=== PATIENT | male | born 1945 | race Caucasian/White ===

== ENCOUNTER 2019-11-06 23:35 | Inpatient (IN) ==
[2019-11-06] MEDS ORDERED: Isovue-370 500 ML BOTTLE IVP ONE (23:53)
[2019-11-07 00:12] LABS: Bilirubin,Urine Negative (Negative); Blood,Urine Negative (Negative); Clarity,Urine Clear (Clear); Color,Urine Colorless (Yellow); Glucose,Urine (UA) Normal (Normal); Ketones,Urine Negative (Negative); Leukocyte Esterase,Urine Negative (Negative); Nitrite,Urine Negative (Negative); Protein,Urine Negative (Neg-Trace); Specific Gravity,Urine 1.008 (1.010-1.025); Urobilinogen,Urine Normal (Normal)
[2019-11-07 00:19] LABS: Prothrombin Time 22.4 Seconds (9.4-12.1)
[2019-11-07 00:21] LABS: Activated Partial Thrombo Time 37.2 Seconds (26.0-36.0)
[2019-11-07 00:33] LABS: Basophils # 0.1 K/mcL (0.0-0.2); Basophils % 0.8 %; Eosinophils # 0.5 K/mcL (0.0-0.6); Eosinophils % 7.9 %; Hematocrit 38.3 % (37.5-50.1); Hemoglobin 12.9 g/dL (12.9-16.9); Immature Granulocytes % 0.2 % (0-4); Lymphocytes # 1.1 K/mcL (0.6-4.6); Lymphocytes % 16.6 %; Mean Corpuscular HGB Conc 33.7 g/dL (31.6-35.5); Mean Corpuscular Hemoglobin 31.5 pg (28.0-33.3); Mean Corpuscular Volume 93.6 fL (83.0-100.0); Mean Platelet Volume 11.3 fL (9.4-12.4); Monocytes # 0.8 K/mcL (0.0-1.3); Monocytes % 11.9 %; Platelet Count 221 K/mcL (140-400); Red Blood Count 4.09 M/mcL (4.19-5.50); Red Cell Distribution Width 13.1 % (11.5-14.5); Segmented Neutrophils % 62.6 %; White Blood Count 6.3 K/mcL (4.3-11.1)
[2019-11-07] MEDS ORDERED: Morphine Sulfate 2 MG/ML SYRINGE IVP ONE ×2 (00:46→06:25)
[2019-11-07 00:48] LABS: Alanine Aminotransferase 15 Units/L (7-52); Albumin 4.1 g/dL (3.5-5.7); Albumin/Globulin Ratio 1.2 (1.1-2.2); Alkaline Phosphatase 112 Units/L (34-104); Aspartate Amino Transferase 23 Units/L (13-39); BUN/Creatinine Ratio 16 (6-26); Bilirubin,Direct 0.2 mg/dL (0.0-0.2); Bilirubin,Indirect 0.5 mg/dL (0.0-1.0); Bilirubin,Total 0.7 mg/dL (0.3-1.0); Blood Urea Nitrogen 22 mg/dL (8-23); Calcium 9.9 mg/dL (8.6-10.3); Carbon Dioxide 27 mEq/L (23-29); Chloride 100 mEq/L (98-107); Globulin 3.5 g/dL (2.4-3.5); Glucose 172 mg/dL (70-105); Lipase 7 Units/L (11-82); Osmolality,Calculated 293 (280-300); Potassium 4.3 mEq/L (3.5-5.1); Sodium 138 mEq/L (136-145); Total Protein 7.6 g/dL (6.4-8.9); Troponin I 0.03 ng/mL (< 0.04); eGFR For African Americans > 60 (> 60); eGFR For Non-African Americans 52 (> 60)
[2019-11-07] MEDS ORDERED: Aspirin 81 MG TAB.CHEW PO ONE (01:10)
[2019-11-07 06:16] LABS: Hematocrit 38.6 % (37.5-50.1); Mean Corpuscular HGB Conc 33.7 g/dL (31.6-35.5); Mean Corpuscular Hemoglobin 31.3 pg (28.0-33.3); Mean Platelet Volume 10.7 fL (9.4-12.4); Platelet Count 211 K/mcL (140-400); Red Blood Count 4.15 M/mcL (4.19-5.50); Red Cell Distribution Width 13.1 % (11.5-14.5); White Blood Count 6.4 K/mcL (4.3-11.1)
[2019-11-07 06:22] LABS: Prothrombin Time 22.8 Seconds (9.4-12.1)
[2019-11-07] MEDS ORDERED: Naloxone 0.4 MG/ML INJ IVP PRN (06:26)
[2019-11-07] MEDS ORDERED: Ondansetron ODT 4 MG TAB.RAPDIS SL PRN (06:29)
[2019-11-07 06:40] LABS: Troponin I 0.04 ng/mL (< 0.04)
[2019-11-07 06:54] LABS: BUN/Creatinine Ratio 19 (6-26); Blood Urea Nitrogen 26 mg/dL (8-23); Carbon Dioxide 29 mEq/L (23-29); Chloride 101 mEq/L (98-107); Glucose 124 mg/dL (70-105); Osmolality,Calculated 294 (280-300); Potassium 4.1 mEq/L (3.5-5.1); Sodium 139 mEq/L (136-145); eGFR For African Americans > 60 (> 60); eGFR For Non-African Americans 52 (> 60)
[2019-11-07] MEDS: Aspirin Enteric Coated 325 MG Tablet PO SCH (07:52)
[2019-11-07] MEDS: Ascorbic Acid 500 MG TABLET PO SCH (07:52)
[2019-11-07] MEDS: Folic Acid 1 MG TABLET PO SCH (07:52)
[2019-11-07] MEDS: Morphine Sulfate ER (12 HR) 30 MG TABLET.ER PO SCH ×2 (07:52→16:34)
[2019-11-07] MEDS: Furosemide 40 MG TABLET PO SCH (07:52)
[2019-11-07] MEDS: Multivit/Ca/Min/Fe/FA 1 TAB TABLET PO SCH (07:52)
[2019-11-07] MEDS: carvediloL 6.25 MG TABLET PO SCH ×2 (07:53→16:34)
[2019-11-07] MEDS: Gabapentin 300 MG CAPSULE PO SCH ×3 (07:53→20:16)
[2019-11-07] MEDS: Cyanocobalamin (B-12) 1,000 MCG TABLET PO SCH (07:53)
[2019-11-07] MEDS: Cholecalciferol (D-3) 1,000 UNIT (25MCG) TABLET PO SCH (07:54)
[2019-11-07] MEDS ORDERED: Dextrose Gel 15 GM/37.5 ML TUBE PO PRN ×2 (08:21)
[2019-11-07] MEDS ORDERED: *HR* Dextrose 50 % in Water (Vial) 50 ML VIAL IVP PRN (08:21)
[2019-11-07] MEDS ORDERED: D5% in Water 1,000 ML IVC PRN (08:21)
[2019-11-07] MEDS ORDERED: Regadenoson 0.4 MG/5 ML SYRINGE IVP ONE (09:53)
[2019-11-07] MEDS: *HR* OxyCODONE Immed Rel 5 MG TABLET PO PRN ×2 (11:28→21:35)
[2019-11-07] MEDS: Insulin LISPRO 300 UNITS/3 ML VIAL SQ SCH ×3 (11:29→21:32)
[2019-11-07] MEDS ORDERED: *HR* Warfarin 3 MG TABLET PO ONE (18:00)
[2019-11-07] MEDS ORDERED: Warfarin perPT PO PRN (18:00)
[2019-11-08 01:28] LABS: INR 1.8; Prothrombin Time 20.6 Seconds (9.4-12.1)
[2019-11-08 01:43] LABS: Chol/HDL Ratio 3.2 (0-4.9)
[2019-11-08] MEDS: Morphine Sulfate ER (12 HR) 30 MG TABLET.ER PO SCH ×2 (05:47→18:15)
[2019-11-08 08:05] LABS: Estimated Average Glucose 232 mg/dl
[2019-11-08] MEDS: Cyanocobalamin (B-12) 1,000 MCG TABLET PO SCH (09:20)
[2019-11-08] MEDS: Aspirin Enteric Coated 325 MG Tablet PO SCH (09:20)
[2019-11-08] MEDS: Ascorbic Acid 500 MG TABLET PO SCH (09:20)
[2019-11-08] MEDS: carvediloL 6.25 MG TABLET PO SCH ×2 (09:20→16:52)
[2019-11-08] MEDS: Folic Acid 1 MG TABLET PO SCH (09:22)
[2019-11-08] MEDS: Insulin LISPRO 300 UNITS/3 ML VIAL SQ SCH ×4 (09:22→22:39)
[2019-11-08] MEDS: Gabapentin 300 MG CAPSULE PO SCH ×3 (09:22→22:39)
[2019-11-08] MEDS: Multivit/Ca/Min/Fe/FA 1 TAB TABLET PO SCH (09:22)
[2019-11-08] MEDS: Furosemide 40 MG TABLET PO SCH (09:22)
[2019-11-08] MEDS: Cholecalciferol (D-3) 1,000 UNIT (25MCG) TABLET PO SCH (09:22)
[2019-11-08] MEDS: *HR* OxyCODONE Immed Rel 5 MG TABLET PO PRN ×2 (13:25→22:50)
[2019-11-08] MEDS: polyethylene glycoL 3350 17 GM POWD.PACK PO SCH ×2 (15:20→22:39)
[2019-11-08] MEDS ORDERED: *HR* Warfarin 4 MG TABLET PO ONE (18:00)
[2019-11-09 03:39] LABS: INR 1.8; Prothrombin Time 20.4 Seconds (9.4-12.1)
[2019-11-09] MEDS ORDERED: Regadenoson 0.4 MG/5 ML SYRINGE IVP ONE (06:26)
[2019-11-09] MEDS: Morphine Sulfate ER (12 HR) 30 MG TABLET.ER PO SCH ×2 (06:27→18:04)
[2019-11-09] MEDS: *HR* OxyCODONE Immed Rel 5 MG TABLET PO PRN (06:28)
[2019-11-09] MEDS: Insulin LISPRO 300 UNITS/3 ML VIAL SQ SCH ×4 (09:25→21:00)
[2019-11-09] MEDS: Cholecalciferol (D-3) 1,000 UNIT (25MCG) TABLET PO SCH (10:27)
[2019-11-09] MEDS: Ascorbic Acid 500 MG TABLET PO SCH (10:27)
[2019-11-09] MEDS: Aspirin Enteric Coated 325 MG Tablet PO SCH (10:27)
[2019-11-09] MEDS: Folic Acid 1 MG TABLET PO SCH (10:28)
[2019-11-09] MEDS: Gabapentin 300 MG CAPSULE PO SCH ×3 (10:28→21:01)
[2019-11-09] MEDS: Furosemide 40 MG TABLET PO SCH (10:28)
[2019-11-09] MEDS: Cyanocobalamin (B-12) 1,000 MCG TABLET PO SCH (10:28)
[2019-11-09] MEDS: Multivit/Ca/Min/Fe/FA 1 TAB TABLET PO SCH (10:29)
[2019-11-09] MEDS: carvediloL 6.25 MG TABLET PO SCH ×2 (10:29→16:36)
[2019-11-09] MEDS: polyethylene glycoL 3350 17 GM POWD.PACK PO SCH ×2 (10:34→21:01)
[2019-11-09 12:16] LABS: Calcium 9.5 mg/dL (8.6-10.3); Potassium 4.1 mEq/L (3.5-5.1)
[2019-11-09 14:47] LABS: INR 1.9; Prothrombin Time 21.1 Seconds (9.4-12.1)
[2019-11-10 04:44] LABS: Prothrombin Time 22.5 Seconds (9.4-12.1)
[2019-11-10 04:45] LABS: Hemoglobin 12.5 g/dL (12.9-16.9); Red Blood Count 3.93 M/mcL (4.19-5.50); White Blood Count 5.4 K/mcL (4.3-11.1)
[2019-11-10 04:46] LABS: Basophils % 0.7 %; Eosinophils # 0.5 K/mcL (0.0-0.6); Eosinophils % 8.3 %; Hematocrit 37.8 % (37.5-50.1); Immature Granulocytes % 0.2 % (0-4); Lymphocytes # 1.1 K/mcL (0.6-4.6); Lymphocytes % 20.9 %; Mean Corpuscular HGB Conc 33.1 g/dL (31.6-35.5); Mean Corpuscular Hemoglobin 31.8 pg (28.0-33.3); Mean Corpuscular Volume 96.2 fL (83.0-100.0); Mean Platelet Volume 11.2 fL (9.4-12.4); Monocytes # 0.8 K/mcL (0.0-1.3); Monocytes % 14.6 %; Platelet Count 210 K/mcL (140-400); Red Cell Distribution Width 12.6 % (11.5-14.5); Segmented Neutrophils % 55.3 %
[2019-11-10 04:57] LABS: Calcium 9.5 mg/dL (8.6-10.3); Magnesium 2.1 mg/dL (1.6-2.6); Phosphorous 3.3 mg/dL (2.7-4.5); Potassium 4.4 mEq/L (3.5-5.1)
[2019-11-10] MEDS: Morphine Sulfate ER (12 HR) 30 MG TABLET.ER PO SCH ×2 (06:54→18:06)
[2019-11-10] MEDS: Cyanocobalamin (B-12) 1,000 MCG TABLET PO SCH (07:48)
[2019-11-10] MEDS: Ascorbic Acid 500 MG TABLET PO SCH (07:48)
[2019-11-10] MEDS: Multivit/Ca/Min/Fe/FA 1 TAB TABLET PO SCH (07:48)
[2019-11-10] MEDS: Cholecalciferol (D-3) 1,000 UNIT (25MCG) TABLET PO SCH (07:48)
[2019-11-10] MEDS: Aspirin Enteric Coated 325 MG Tablet PO SCH (07:48)
[2019-11-10] MEDS: carvediloL 6.25 MG TABLET PO SCH ×2 (07:48→16:25)
[2019-11-10] MEDS: Gabapentin 300 MG CAPSULE PO SCH ×3 (07:49→20:01)
[2019-11-10] MEDS: Folic Acid 1 MG TABLET PO SCH (07:49)
[2019-11-10] MEDS: Furosemide 40 MG TABLET PO SCH (07:49)
[2019-11-10] MEDS: polyethylene glycoL 3350 17 GM POWD.PACK PO SCH ×2 (07:51→20:01)
[2019-11-10] MEDS: Insulin LISPRO 300 UNITS/3 ML VIAL SQ SCH ×4 (07:51→19:25)
[2019-11-10] MEDS: Nitroglycerin 0.4 MG TAB.SUBL SL PRN ×2 (11:12→11:18)
[2019-11-11 02:12] LABS: Basophils % 0.7 %; Eosinophils # 0.4 K/mcL (0.0-0.6); Eosinophils % 7.4 %; Hematocrit 37.2 % (37.5-50.1); Hemoglobin 12.2 g/dL (12.9-16.9); Immature Granulocytes % 0.2 % (0-4); Lymphocytes # 1.1 K/mcL (0.6-4.6); Lymphocytes % 18.8 %; Mean Corpuscular HGB Conc 32.8 g/dL (31.6-35.5); Mean Corpuscular Hemoglobin 31.1 pg (28.0-33.3); Mean Corpuscular Volume 94.9 fL (83.0-100.0); Mean Platelet Volume 11.3 fL (9.4-12.4); Monocytes # 0.8 K/mcL (0.0-1.3); Monocytes % 12.8 %; Neutrophils # 3.5 K/mcL (1.6-8.9); Platelet Count 207 K/mcL (140-400); Red Blood Count 3.92 M/mcL (4.19-5.50); Red Cell Distribution Width 12.9 % (11.5-14.5); Segmented Neutrophils % 60.1 %; White Blood Count 5.9 K/mcL (4.3-11.1)
[2019-11-11 02:16] LABS: INR 1.7; Prothrombin Time 19.6 Seconds (9.4-12.1)
[2019-11-11 02:24] LABS: Calcium 8.9 mg/dL (8.6-10.3); Magnesium 1.9 mg/dL (1.6-2.6); Potassium 4.5 mEq/L (3.5-5.1)
[2019-11-11] MEDS ORDERED: *HR* Heparin 5,000 UNIT/ML VIAL IVP PRN ×2 (02:48)
[2019-11-11] MEDS ORDERED: *HR* Heparin 5,000 UNIT/ML VIAL IVP ONE (02:48)
[2019-11-11] MEDS: Heparin 25,000 UNIT/250 ML D5W 25,000 UNIT/250 ML IV.SOLN IVC SCH (03:40)
[2019-11-11] MEDS: *HR* OxyCODONE Immed Rel 5 MG TABLET PO PRN (03:56)
[2019-11-11] MEDS: Morphine Sulfate ER (12 HR) 30 MG TABLET.ER PO SCH ×2 (05:55→18:40)
[2019-11-11 07:16] LABS: Hemoglobin 12.2 g/dL (12.9-16.9); Mean Corpuscular HGB Conc 34.9 g/dL (31.6-35.5); Mean Corpuscular Hemoglobin 32.6 pg (28.0-33.3); Mean Corpuscular Volume 93.6 fL (83.0-100.0); Mean Platelet Volume 10.6 fL (9.4-12.4); Platelet Count 183 K/mcL (140-400); Red Blood Count 3.74 M/mcL (4.19-5.50); Red Cell Distribution Width 12.7 % (11.5-14.5); White Blood Count 7.3 K/mcL (4.3-11.1)
[2019-11-11 07:21] LABS: Activated Partial Thrombo Time 108.3 Seconds (26.0-36.0)
[2019-11-11 07:22] LABS: INR 1.7
[2019-11-11 07:37] LABS: Heparin anti-factor XA UFH 0.57 IU/mL (0.30-0.70)
[2019-11-11] MEDS: Cholecalciferol (D-3) 1,000 UNIT (25MCG) TABLET PO SCH (08:06)
[2019-11-11] MEDS: Gabapentin 300 MG CAPSULE PO SCH ×3 (08:07→20:29)
[2019-11-11] MEDS: Aspirin Enteric Coated 325 MG Tablet PO SCH (08:07)
[2019-11-11] MEDS: Multivit/Ca/Min/Fe/FA 1 TAB TABLET PO SCH (08:08)
[2019-11-11] MEDS: Cyanocobalamin (B-12) 1,000 MCG TABLET PO SCH (08:08)
[2019-11-11] MEDS: Furosemide 40 MG TABLET PO SCH (08:08)
[2019-11-11] MEDS: Ascorbic Acid 500 MG TABLET PO SCH (08:08)
[2019-11-11] MEDS: Insulin LISPRO 300 UNITS/3 ML VIAL SQ SCH ×4 (08:09→20:35)
[2019-11-11] MEDS: polyethylene glycoL 3350 17 GM POWD.PACK PO SCH ×2 (08:27→20:30)
[2019-11-11] MEDS: Folic Acid 1 MG TABLET PO SCH (08:28)
[2019-11-11] MEDS: carvediloL 6.25 MG TABLET PO SCH ×2 (08:30→16:59)
[2019-11-12] MEDS: Heparin 25,000 UNIT/250 ML D5W 25,000 UNIT/250 ML IV.SOLN IVC SCH (03:52)
[2019-11-12 04:10] LABS: Basophils % 0.6 %; Eosinophils # 0.5 K/mcL (0.0-0.6); Eosinophils % 9.1 %; Hematocrit 35.8 % (37.5-50.1); Hemoglobin 12.3 g/dL (12.9-16.9); INR 1.4; Immature Granulocytes % 0.2 % (0-4); Lymphocytes # 1.1 K/mcL (0.6-4.6); Lymphocytes % 20.6 %; Mean Corpuscular HGB Conc 34.4 g/dL (31.6-35.5); Mean Corpuscular Hemoglobin 32.5 pg (28.0-33.3); Mean Corpuscular Volume 94.5 fL (83.0-100.0); Mean Platelet Volume 11.1 fL (9.4-12.4); Monocytes # 0.7 K/mcL (0.0-1.3); Monocytes % 12.1 %; Neutrophils # 3.1 K/mcL (1.6-8.9); Platelet Count 197 K/mcL (140-400); Prothrombin Time 16.1 Seconds (9.4-12.1); Red Blood Count 3.79 M/mcL (4.19-5.50); Segmented Neutrophils % 57.4 %; White Blood Count 5.4 K/mcL (4.3-11.1)
[2019-11-12 04:29] LABS: Calcium 8.7 mg/dL (8.6-10.3); Magnesium 1.9 mg/dL (1.6-2.6); Phosphorous 3.8 mg/dL (2.7-4.5); Potassium 4.1 mEq/L (3.5-5.1)
[2019-11-12] MEDS: Morphine Sulfate ER (12 HR) 30 MG TABLET.ER PO SCH ×2 (05:46→17:41)
[2019-11-12] MEDS: Folic Acid 1 MG TABLET PO SCH (07:54)
[2019-11-12] MEDS: Cyanocobalamin (B-12) 1,000 MCG TABLET PO SCH (07:54)
[2019-11-12] MEDS: Multivit/Ca/Min/Fe/FA 1 TAB TABLET PO SCH (07:54)
[2019-11-12] MEDS: Furosemide 40 MG TABLET PO SCH (07:54)
[2019-11-12] MEDS: Aspirin Enteric Coated 325 MG Tablet PO SCH (07:54)
[2019-11-12] MEDS: Ascorbic Acid 500 MG TABLET PO SCH (07:54)
[2019-11-12] MEDS: Gabapentin 300 MG CAPSULE PO SCH ×3 (07:54→20:54)
[2019-11-12] MEDS: polyethylene glycoL 3350 17 GM POWD.PACK PO SCH ×2 (07:55→20:57)
[2019-11-12] MEDS: Cholecalciferol (D-3) 1,000 UNIT (25MCG) TABLET PO SCH (07:55)
[2019-11-12] MEDS: Insulin LISPRO 300 UNITS/3 ML VIAL SQ SCH ×4 (08:00→20:57)
[2019-11-12] MEDS: carvediloL 6.25 MG TABLET PO SCH ×2 (08:06→16:35)
[2019-11-12] MEDS: predniSONE 20 MG TABLET PO SCH (20:53)
[2019-11-13 01:07] LABS: Basophils % 0.4 %; Eosinophils # 0.2 K/mcL (0.0-0.6); Eosinophils % 3.1 %; Hematocrit 38.5 % (37.5-50.1); Hemoglobin 12.7 g/dL (12.9-16.9); Immature Granulocytes % 0.4 % (0-4); Lymphocytes # 0.6 K/mcL (0.6-4.6); Lymphocytes % 10.7 %; Mean Corpuscular Hemoglobin 31.3 pg (28.0-33.3); Mean Corpuscular Volume 94.8 fL (83.0-100.0); Mean Platelet Volume 11.2 fL (9.4-12.4); Monocytes # 0.2 K/mcL (0.0-1.3); Monocytes % 3.3 %; Neutrophils # 4.2 K/mcL (1.6-8.9); Platelet Count 213 K/mcL (140-400); Red Blood Count 4.06 M/mcL (4.19-5.50); Red Cell Distribution Width 12.8 % (11.5-14.5); Segmented Neutrophils % 82.1 %; White Blood Count 5.2 K/mcL (4.3-11.1)
[2019-11-13 01:11] LABS: Magnesium 1.9 mg/dL (1.6-2.6); Phosphorous 2.7 mg/dL (2.7-4.5); Potassium 4.4 mEq/L (3.5-5.1)
[2019-11-13] MEDS: predniSONE 20 MG TABLET PO SCH ×2 (02:25→20:28)
[2019-11-13] MEDS: Heparin 25,000 UNIT/250 ML D5W 25,000 UNIT/250 ML IV.SOLN IVC SCH (04:11)
[2019-11-13] MEDS: Morphine Sulfate ER (12 HR) 30 MG TABLET.ER PO SCH ×2 (05:45→17:55)
[2019-11-13] MEDS ORDERED: 0.9 % Sodium Chloride 1,000 ML IVC SCH ×2 (06:00→23:00)
[2019-11-13] MEDS: polyethylene glycoL 3350 17 GM POWD.PACK PO SCH ×2 (07:36→20:28)
[2019-11-13] MEDS: Gabapentin 300 MG CAPSULE PO SCH ×3 (07:58→20:29)
[2019-11-13] MEDS: Folic Acid 1 MG TABLET PO SCH (07:59)
[2019-11-13] MEDS: carvediloL 6.25 MG TABLET PO SCH ×2 (07:59→17:54)
[2019-11-13] MEDS: Multivit/Ca/Min/Fe/FA 1 TAB TABLET PO SCH (07:59)
[2019-11-13] MEDS: Cholecalciferol (D-3) 1,000 UNIT (25MCG) TABLET PO SCH (07:59)
[2019-11-13] MEDS: Cyanocobalamin (B-12) 1,000 MCG TABLET PO SCH (08:00)
[2019-11-13] MEDS: Aspirin Enteric Coated 325 MG Tablet PO SCH (08:00)
[2019-11-13] MEDS: Ascorbic Acid 500 MG TABLET PO SCH (08:00)
[2019-11-13] MEDS: Insulin LISPRO 300 UNITS/3 ML VIAL SQ SCH ×4 (08:00→20:33)
[2019-11-14] MEDS: predniSONE 20 MG TABLET PO SCH (02:39)
[2019-11-14] MEDS: Heparin 25,000 UNIT/250 ML D5W 25,000 UNIT/250 ML IV.SOLN IVC SCH (02:40)
[2019-11-14] MEDS: Morphine Sulfate ER (12 HR) 30 MG TABLET.ER PO SCH ×2 (05:51→20:04)
[2019-11-14] MEDS: Insulin LISPRO 300 UNITS/3 ML VIAL SQ SCH ×3 (06:52→18:00)
[2019-11-14 08:25] LABS: Basophils % 0.1 %; Hematocrit 36.3 % (37.5-50.1); Hemoglobin 12.5 g/dL (12.9-16.9); Immature Granulocytes % 0.4 % (0-4); Lymphocytes # 0.6 K/mcL (0.6-4.6); Lymphocytes % 5.2 %; Mean Corpuscular HGB Conc 34.4 g/dL (31.6-35.5); Mean Corpuscular Hemoglobin 32.9 pg (28.0-33.3); Mean Corpuscular Volume 95.5 fL (83.0-100.0); Mean Platelet Volume 10.8 fL (9.4-12.4); Monocytes # 0.2 K/mcL (0.0-1.3); Monocytes % 1.6 %; Platelet Count 204 K/mcL (140-400); Red Cell Distribution Width 12.9 % (11.5-14.5); Segmented Neutrophils % 92.7 %; White Blood Count 10.6 K/mcL (4.3-11.1)
[2019-11-14 08:26] LABS: Neutrophils # 9.8 K/mcL (1.6-8.9)
[2019-11-14 08:43] LABS: Calcium 9.8 mg/dL (8.6-10.3); Magnesium 1.9 mg/dL (1.6-2.6); Phosphorous 3.1 mg/dL (2.7-4.5); Potassium 4.4 mEq/L (3.5-5.1)
[2019-11-14] MEDS: carvediloL 6.25 MG TABLET PO SCH ×2 (08:48→17:30)
[2019-11-14] MEDS: Aspirin Enteric Coated 325 MG Tablet PO SCH (08:58)
[2019-11-14] MEDS: polyethylene glycoL 3350 17 GM POWD.PACK PO SCH ×2 (08:58→19:55)
[2019-11-14] MEDS: Gabapentin 300 MG CAPSULE PO SCH (08:59)
[2019-11-14] MEDS: Multivit/Ca/Min/Fe/FA 1 TAB TABLET PO SCH (08:59)
[2019-11-14] MEDS: Ascorbic Acid 500 MG TABLET PO SCH (08:59)
[2019-11-14] MEDS: Cyanocobalamin (B-12) 1,000 MCG TABLET PO SCH (08:59)
[2019-11-14] MEDS: Folic Acid 1 MG TABLET PO SCH (09:00)
[2019-11-14] MEDS: Cholecalciferol (D-3) 1,000 UNIT (25MCG) TABLET PO SCH (09:01)
[2019-11-14] MEDS: Insulin DETEMIR 100 UNIT/ML X5UNITS SQ SCH ×2 (09:46→19:54)
[2019-11-14] MEDS ORDERED: 0.9 % Sodium Chloride 2,000 ML ONE (13:00)
[2019-11-14] MEDS ORDERED: Nitroglycerin 1,000 MCG/10 ML VIAL IV ONE (13:01)
[2019-11-14] MEDS ORDERED: ISOVUE-370 200 ML INFUS..BTL ONE (13:01)
[2019-11-14] MEDS ORDERED: *HR* Heparin 10,000 UNIT/10 ML VIAL ONE (13:01)
[2019-11-14] MEDS ORDERED: Heparin 1,000 UNITS/500 mL 500 ML ONE (13:01)
[2019-11-14] MEDS ORDERED: *HR* Midazolam HCl 2 MG/2 ML VIAL ONE ×2 (13:34→15:15)
[2019-11-14] MEDS ORDERED: *HR* FentaNYL (PF) 100 MCG/2 ML VIAL ONE ×2 (13:35→15:43)
[2019-11-14] MEDS ORDERED: methylPREDNISolone 125 MG/2 ML VIAL ONE (13:46)
[2019-11-14] MEDS ORDERED: *HR* Propofol 200 MG/20 ML VIAL IVP ONE (15:16)
[2019-11-14] MEDS ORDERED: Lidocaine -MPF 2% 2 ML VIAL ONE (15:17)
[2019-11-14] MEDS ORDERED: Lidocaine/EPI 1:100k 1% 20 ML VIAL ONE (16:30)
[2019-11-14] MEDS ORDERED: *HR* HYDROmorphone PF 0.5 MG/0.5 ML SYRINGE IVP PRN (17:17)
[2019-11-14] MEDS ORDERED: *HR* Promethazine 25 MG/ML VIAL IVP PRN (17:17)
[2019-11-14] MEDS ORDERED: *HR* OxyCODONE Immed Rel 5 MG TABLET PO PRN (17:17)
[2019-11-14] MEDS ORDERED: Ondansetron 4 MG/2 ML VIAL IVP ONE (17:17)
[2019-11-14] MEDS ORDERED: EPHEDrine 50 MG/ML VIAL ONE (17:23)
[2019-11-14] MEDS: ceFAZolin 2,000 MG in 0.9 % Sodium Chloride 100 ML IVPB SCH (23:00)
[2019-11-15] MEDS: Insulin LISPRO 300 UNITS/3 ML VIAL SQ SCH ×4 (00:53→16:53)
[2019-11-15 03:22] LABS: Basophils % 0.1 %; Hematocrit 34.4 % (37.5-50.1); Hemoglobin 11.8 g/dL (12.9-16.9); Immature Granulocytes % 0.7 % (0-4); Lymphocytes # 0.4 K/mcL (0.6-4.6); Lymphocytes % 2.8 %; Mean Corpuscular HGB Conc 34.3 g/dL (31.6-35.5); Mean Corpuscular Hemoglobin 32.6 pg (28.0-33.3); Mean Platelet Volume 10.7 fL (9.4-12.4); Monocytes # 0.6 K/mcL (0.0-1.3); Monocytes % 4.2 %; Neutrophils # 13.7 K/mcL (1.6-8.9); Platelet Count 220 K/mcL (140-400); Red Blood Count 3.62 M/mcL (4.19-5.50); Red Cell Distribution Width 13.1 % (11.5-14.5); Segmented Neutrophils % 92.2 %; White Blood Count 14.9 K/mcL (4.3-11.1)
[2019-11-15 03:48] LABS: Calcium 9.4 mg/dL (8.6-10.3); Magnesium 1.8 mg/dL (1.6-2.6); Phosphorous 3.4 mg/dL (2.7-4.5); Potassium 4.3 mEq/L (3.5-5.1)
[2019-11-15] MEDS: Morphine Sulfate ER (12 HR) 30 MG TABLET.ER PO SCH ×2 (05:34→18:43)
[2019-11-15] MEDS: polyethylene glycoL 3350 17 GM POWD.PACK PO SCH ×2 (07:30→20:47)
[2019-11-15] MEDS: Multivit/Ca/Min/Fe/FA 1 TAB TABLET PO SCH (08:32)
[2019-11-15] MEDS: Folic Acid 1 MG TABLET PO SCH (08:32)
[2019-11-15] MEDS: Ascorbic Acid 500 MG TABLET PO SCH (08:35)
[2019-11-15] MEDS: *HR* OxyCODONE Immed Rel 5 MG TABLET PO PRN ×4 (08:35→23:36)
[2019-11-15] MEDS: Cyanocobalamin (B-12) 1,000 MCG TABLET PO SCH (08:35)
[2019-11-15] MEDS: ceFAZolin 2,000 MG in 0.9 % Sodium Chloride 100 ML IVPB SCH (08:35)
[2019-11-15] MEDS: carvediloL 6.25 MG TABLET PO SCH ×2 (08:35→16:27)
[2019-11-15] MEDS: Aspirin Enteric Coated 325 MG Tablet PO SCH (08:35)
[2019-11-15] MEDS: Cholecalciferol (D-3) 1,000 UNIT (25MCG) TABLET PO SCH (08:36)
[2019-11-15 09:44] LABS: INR 1.1; Prothrombin Time 12.8 Seconds (9.4-12.1)
[2019-11-15] MEDS ORDERED: *HR* Heparin 5,000 UNIT/ML VIAL IVP PRN ×4 (10:53→12:21)
[2019-11-15] MEDS ORDERED: Heparin 25,000 UNIT/250 ML D5W 25,000 UNIT/250 ML IV.SOLN IVC SCH (11:00)
[2019-11-15] MEDS: Magnesium Oxide 400 MG TABLET PO SCH (12:01)
[2019-11-15 13:03] LABS: Hematocrit 36.2 % (37.5-50.1); Hemoglobin 12.4 g/dL (12.9-16.9); Mean Corpuscular HGB Conc 34.3 g/dL (31.6-35.5); Mean Corpuscular Hemoglobin 32.6 pg (28.0-33.3); Mean Corpuscular Volume 95.3 fL (83.0-100.0); Mean Platelet Volume 10.6 fL (9.4-12.4); Platelet Count 220 K/mcL (140-400); Red Cell Distribution Width 13.3 % (11.5-14.5); White Blood Count 12.8 K/mcL (4.3-11.1)
[2019-11-15] MEDS: Heparin 25,000 UNIT/250 ML D5W 25,000 UNIT/250 ML IV.SOLN IVC SCH (13:16)
[2019-11-15 16:28] LABS: Bilirubin,Urine Negative (Negative); Blood,Urine Negative (Negative); Clarity,Urine Clear (Clear); Color,Urine Light-Yellow (Yellow); Glucose,Urine (UA) 100 mg/dL (Normal); Ketones,Urine Negative (Negative); Leukocyte Esterase,Urine Negative (Negative); Nitrite,Urine Negative (Negative); Protein,Urine Negative (Neg-Trace); Specific Gravity,Urine 1.029 (1.010-1.025); Urobilinogen,Urine Normal (Normal)
[2019-11-15 17:22] LABS: Protein/Creatinine Ratio,Urine 0.16 mg/mg (0.00-0.20)
[2019-11-15] MEDS ORDERED: Warfarin perPT PO PRN (18:00)
[2019-11-15] MEDS ORDERED: *HR* Warfarin 3 MG TABLET PO ONE (18:00)
[2019-11-15] MEDS: Insulin DETEMIR 100 UNIT/ML X5UNITS SQ SCH (20:52)
[2019-11-15] MEDS ORDERED: Insulin LISPRO 300 UNITS/3 ML VIAL SQ SCH (21:00)
[2019-11-16 03:01] LABS: Basophils % 0.2 %; Eosinophils % 0.1 %; Hematocrit 38.6 % (37.5-50.1); Hemoglobin 12.8 g/dL (12.9-16.9); Immature Granulocytes % 0.4 % (0-4); Lymphocytes # 1.7 K/mcL (0.6-4.6); Lymphocytes % 15.1 %; Mean Corpuscular HGB Conc 33.2 g/dL (31.6-35.5); Mean Corpuscular Hemoglobin 32.1 pg (28.0-33.3); Mean Corpuscular Volume 96.7 fL (83.0-100.0); Mean Platelet Volume 11.2 fL (9.4-12.4); Monocytes # 1.1 K/mcL (0.0-1.3); Monocytes % 9.9 %; Neutrophils # 8.2 K/mcL (1.6-8.9); Platelet Count 240 K/mcL (140-400); Red Blood Count 3.99 M/mcL (4.19-5.50); Red Cell Distribution Width 13.5 % (11.5-14.5); Segmented Neutrophils % 74.3 %; White Blood Count 11.1 K/mcL (4.3-11.1)
[2019-11-16 03:05] LABS: INR 1.2; Prothrombin Time 13.5 Seconds (9.4-12.1)
[2019-11-16 03:19] LABS: Calcium 9.1 mg/dL (8.6-10.3); Magnesium 2.1 mg/dL (1.6-2.6); Potassium 3.9 mEq/L (3.5-5.1)
[2019-11-16] MEDS: Morphine Sulfate ER (12 HR) 30 MG TABLET.ER PO SCH (05:30)
[2019-11-16 07:08] VITALS: BP 137/74
[2019-11-16] MEDS: Heparin 25,000 UNIT/250 ML D5W 25,000 UNIT/250 ML IV.SOLN IVC SCH (07:24)
[2019-11-16] MEDS: Gabapentin 300 MG CAPSULE PO SCH (07:37)
[2019-11-16] MEDS: *HR* OxyCODONE Immed Rel 5 MG TABLET PO PRN (08:50)
[2019-11-16] MEDS: Cyanocobalamin (B-12) 1,000 MCG TABLET PO SCH (08:50)
[2019-11-16] MEDS: Ascorbic Acid 500 MG TABLET PO SCH (08:50)
[2019-11-16] MEDS: Aspirin Enteric Coated 325 MG Tablet PO SCH (08:51)
[2019-11-16] MEDS: carvediloL 6.25 MG TABLET PO SCH (08:51)
[2019-11-16] MEDS: Cholecalciferol (D-3) 1,000 UNIT (25MCG) TABLET PO SCH (08:51)
[2019-11-16] MEDS: Folic Acid 1 MG TABLET PO SCH (08:51)
[2019-11-16] MEDS: Magnesium Oxide 400 MG TABLET PO SCH (08:51)
[2019-11-16] MEDS: polyethylene glycoL 3350 17 GM POWD.PACK PO SCH (08:51)
[2019-11-16] MEDS: Multivit/Ca/Min/Fe/FA 1 TAB TABLET PO SCH (08:51)
[2019-11-16] MEDS: Insulin LISPRO 300 UNITS/3 ML VIAL SQ SCH (08:54)
[2019-11-16] MEDS ORDERED: Acetaminophen IV 1,000 MG/100 ML INFUS..BTL IVPB ONE (09:57)
[2019-11-16] MEDS ORDERED: *HR* Enoxaparin 100 MG/ML SYRINGE SQ SCH (11:00)
== END 2019-11-16 11:24 | disposition home health service (06) | DRG 981 ==
LOC: EDBD → EMEROOARM 23:35 → 2ANU 23:35 → MERGE 11-07 05:08 → 2ANU 11-07 05:40 → SUATTDRO 11-10 07:26
PROVIDERS: ADMIT Family Medicine; ATTEND Internal Medicine
PROC: [UNRECOGNIZED PROCEDURE] (2019-11-14 17:50)

== ENCOUNTER 2020-05-26 19:58 | Observation (INO) ==
[2020-05-26] MEDS ORDERED: Isovue-370 500 ML BOTTLE IVP ONE (20:44)
[2020-05-26] MEDS ORDERED: *HR* HYDROmorphone (PF) 1 MG/ML SYRINGE IVP ONE (20:44)
[2020-05-26] MEDS ORDERED: Orphenadrine 60 MG/2 ML VIAL IVP ONE (20:47)
[2020-05-26 21:04] LABS: Basophils % 0.6 %; Eosinophils # 0.4 K/mcL (0.0-0.6); Eosinophils % 5.3 %; Hemoglobin 11.6 g/dL (12.9-16.9); Immature Granulocytes % 0.3 % (0-4); Lymphocytes # 1.1 K/mcL (0.6-4.6); Mean Corpuscular HGB Conc 33.1 g/dL (31.6-35.5); Mean Corpuscular Volume 96.4 fL (83.0-100.0); Monocytes # 0.8 K/mcL (0.0-1.3); Monocytes % 11.4 %; Neutrophils # 4.5 K/mcL (1.6-8.9); Platelet Count 231 K/mcL (140-400); Red Blood Count 3.63 M/mcL (4.19-5.50); Red Cell Distribution Width 12.7 % (11.5-14.5); Segmented Neutrophils % 66.4 %; White Blood Count 6.8 K/mcL (4.3-11.1)
[2020-05-26 21:07] LABS: Prothrombin Time 22.5 Seconds (9.4-12.1)
[2020-05-26 21:23] LABS: Alanine Aminotransferase 12 Units/L (7-52); Albumin/Globulin Ratio 1.4 (1.1-2.2); Alkaline Phosphatase 106 Units/L (34-104); Aspartate Amino Transferase 20 Units/L (13-39); BUN/Creatinine Ratio 11 (6-26); Bilirubin,Total 0.9 mg/dL (0.3-1.0); Blood Urea Nitrogen 12 mg/dL (8-23); Calcium 9.5 mg/dL (8.6-10.3); Carbon Dioxide 30 mEq/L (23-29); Chloride 103 mEq/L (98-107); Globulin 2.9 g/dL (2.4-3.5); Glucose 127 mg/dL (70-105); Osmolality,Calculated 285 (280-300); Potassium 4.4 mEq/L (3.5-5.1); Sodium 137 mEq/L (136-145); Total Protein 6.9 g/dL (6.4-8.9); eGFR For African Americans > 60 (> 60); eGFR For Non-African Americans > 60 (> 60)
[2020-05-26 22:41] LABS: Bilirubin,Urine Negative (Negative); Blood,Urine Negative (Negative); Clarity,Urine Clear (Clear); Color,Urine Yellow (Yellow); Glucose,Urine (UA) Normal (Normal); Ketones,Urine Negative (Negative); Leukocyte Esterase,Urine Negative (Negative); Mucus,Urine Few per lpf (None-Few); Nitrite,Urine Negative (Negative); PH,Urine 5.5 pH Units (5.0-8.0); Protein,Urine 50 mg/dL (Neg-Trace); RBC,Urine 0-3 per hpf (0-3); Specific Gravity,Urine > 1.030 (1.010-1.025); Urobilinogen,Urine Normal (Normal)
[2020-05-27] MEDS ORDERED: Naloxone 0.4 MG/ML INJ IVP PRN (01:46)
[2020-05-27] MEDS ORDERED: 0.9 % Sodium Chloride 1,000 ML IVC SCH (02:00)
[2020-05-27] MEDS ORDERED: Gabapentin 300 MG CAPSULE PO ONE (04:03)
[2020-05-27] MEDS ORDERED: Dextrose Gel 15 GM/37.5 ML TUBE PO PRN ×2 (05:32)
[2020-05-27] MEDS ORDERED: D5% in Water 1,000 ML IVC PRN (05:32)
[2020-05-27] MEDS ORDERED: *HR* Dextrose 50 % in Water (Vial) 50 ML VIAL IVP PRN (05:32)
[2020-05-27 05:57] LABS: Hematocrit 34.4 % (37.5-50.1); Hemoglobin 11.5 g/dL (12.9-16.9); Mean Corpuscular HGB Conc 33.4 g/dL (31.6-35.5); Mean Corpuscular Hemoglobin 32.1 pg (28.0-33.3); Mean Corpuscular Volume 96.1 fL (83.0-100.0); Mean Platelet Volume 10.8 fL (9.4-12.4); Platelet Count 211 K/mcL (140-400); Red Blood Count 3.58 M/mcL (4.19-5.50); Red Cell Distribution Width 12.9 % (11.5-14.5)
[2020-05-27 06:20] LABS: BUN/Creatinine Ratio 12 (6-26); Blood Urea Nitrogen 13 mg/dL (8-23); Calcium 9.2 mg/dL (8.6-10.3); Carbon Dioxide 26 mEq/L (23-29); Chloride 103 mEq/L (98-107); Glucose 144 mg/dL (70-105); Magnesium 1.6 mg/dL (1.6-2.6); Osmolality,Calculated 285 (280-300); Phosphorous 2.3 mg/dL (2.7-4.5); Potassium 3.9 mEq/L (3.5-5.1); Sodium 136 mEq/L (136-145); eGFR For African Americans > 60 (> 60); eGFR For Non-African Americans > 60 (> 60)
[2020-05-27] MEDS: *HR* HYDROmorphone (PF) 1 MG/ML SYRINGE IVP PRN ×2 (13:52→21:02)
[2020-05-27] MEDS: Gabapentin 300 MG CAPSULE PO SCH ×2 (13:53→20:53)
[2020-05-28] MEDS: *HR* HYDROmorphone (PF) 1 MG/ML SYRINGE IVP PRN (04:08)
[2020-05-28 04:35] LABS: Hematocrit 38.5 % (37.5-50.1); Hemoglobin 12.8 g/dL (12.9-16.9); Mean Corpuscular HGB Conc 33.2 g/dL (31.6-35.5); Mean Corpuscular Hemoglobin 32.2 pg (28.0-33.3); Mean Corpuscular Volume 96.7 fL (83.0-100.0); Mean Platelet Volume 10.6 fL (9.4-12.4); Platelet Count 229 K/mcL (140-400); Red Blood Count 3.98 M/mcL (4.19-5.50); Red Cell Distribution Width 12.9 % (11.5-14.5); White Blood Count 6.7 K/mcL (4.3-11.1)
[2020-05-28 04:40] LABS: Prothrombin Time 22.6 Seconds (9.4-12.1)
[2020-05-28 06:12] LABS: BUN/Creatinine Ratio 13 (6-26); Blood Urea Nitrogen 15 mg/dL (8-23); Calcium 9.1 mg/dL (8.6-10.3); Carbon Dioxide 27 mEq/L (23-29); Chloride 104 mEq/L (98-107); Glucose 141 mg/dL (70-105); Magnesium 1.7 mg/dL (1.6-2.6); Osmolality,Calculated 289 (280-300); Phosphorous 2.5 mg/dL (2.7-4.5); Potassium 4.2 mEq/L (3.5-5.1); Sodium 138 mEq/L (136-145); eGFR For African Americans > 60 (> 60); eGFR For Non-African Americans 59 (> 60)
[2020-05-28] MEDS: Gabapentin 300 MG CAPSULE PO SCH ×3 (08:58→20:59)
[2020-05-28] MEDS ORDERED: *HR* Warfarin 3 MG TABLET PO ONE (18:00)
[2020-05-28] MEDS ORDERED: Warfarin perPT PO PRN (18:00)
[2020-05-28] MEDS: carvediloL 6.25 MG TABLET PO SCH (18:13)
[2020-05-28] MEDS: Morphine Sulfate ER (12 HR) 30 MG TABLET.ER PO SCH (20:59)
[2020-05-29 04:45] LABS: Hematocrit 34.2 % (37.5-50.1); Hemoglobin 11.6 g/dL (12.9-16.9); Mean Corpuscular HGB Conc 33.9 g/dL (31.6-35.5); Mean Corpuscular Hemoglobin 31.7 pg (28.0-33.3); Mean Corpuscular Volume 93.4 fL (83.0-100.0); Mean Platelet Volume 10.6 fL (9.4-12.4); Platelet Count 222 K/mcL (140-400); Red Blood Count 3.66 M/mcL (4.19-5.50); Red Cell Distribution Width 12.8 % (11.5-14.5); White Blood Count 7.5 K/mcL (4.3-11.1)
[2020-05-29 04:50] LABS: INR 2.1; Prothrombin Time 23.3 Seconds (9.4-12.1)
[2020-05-29 05:04] LABS: BUN/Creatinine Ratio 13 (6-26); Blood Urea Nitrogen 14 mg/dL (8-23); Carbon Dioxide 27 mEq/L (23-29); Chloride 107 mEq/L (98-107); Glucose 171 mg/dL (70-105); Magnesium 1.7 mg/dL (1.6-2.6); Osmolality,Calculated 295 (280-300); Phosphorous 2.3 mg/dL (2.7-4.5); Potassium 4.1 mEq/L (3.5-5.1); Sodium 140 mEq/L (136-145); eGFR For African Americans > 60 (> 60); eGFR For Non-African Americans > 60 (> 60)
[2020-05-29] MEDS: carvediloL 6.25 MG TABLET PO SCH (07:59)
[2020-05-29] MEDS: Gabapentin 300 MG CAPSULE PO SCH (08:00)
[2020-05-29] MEDS: Morphine Sulfate ER (12 HR) 30 MG TABLET.ER PO SCH (08:00)
[2020-05-29] MEDS ORDERED: Aspirin 325 MG TABLET PO SCH (09:00)
[2020-05-29] MEDS ORDERED: Cholecalciferol (D-3) 1,000 UNIT (25MCG) TABLET PO SCH (09:00)
[2020-05-29] MEDS ORDERED: Cyanocobalamin (B-12) 1,000 MCG TABLET PO SCH (09:00)
[2020-05-29] MEDS ORDERED: Folic Acid 1 MG TABLET PO SCH (09:00)
[2020-05-29] MEDS ORDERED: Furosemide 40 MG TABLET PO SCH (09:00)
[2020-05-29 14:55] VITALS: BP 117/65
[2020-05-29] MEDS ORDERED: *HR* Warfarin 2 MG TABLET PO ONE (18:00)
== END 2020-05-29 16:40 | disposition home health service (06) ==
LOC: 3NENU 19:58 → EMEROOARM 19:58 → SUATTDRO 05-27 00:53 → 3NENU 05-27 01:41
PROVIDERS: ADMIT Student in an Organized Health Care Education/Training Program; ATTEND Internal Medicine

== ENCOUNTER 2020-08-20 20:46 | Observation (INO) ==
[2020-08-20] MEDS ORDERED: 0.9 % Sodium Chloride 1,000 ML IVC ONE (21:47)
[2020-08-20] MEDS ORDERED: Isovue-370 500 ML BOTTLE IVP ONE (22:00)
[2020-08-20] MEDS ORDERED: *HR* FentaNYL (PF) 100 MCG/2 ML VIAL IVP ONE (22:01)
[2020-08-20 22:48] LABS: Basophils % 0.4 %; Eosinophils # 0.1 K/mcL (0.0-0.6); Eosinophils % 2.7 %; Hematocrit 31.8 % (37.5-50.1); Immature Granulocytes % 0.2 % (0-4); Lymphocytes # 0.5 K/mcL (0.6-4.6); Mean Corpuscular HGB Conc 34.6 g/dL (31.6-35.5); Mean Corpuscular Volume 92.4 fL (83.0-100.0); Mean Platelet Volume 10.8 fL (9.4-12.4); Monocytes # 0.9 K/mcL (0.0-1.3); Monocytes % 17.2 %; Neutrophils # 3.6 K/mcL (1.6-8.9); Platelet Count 157 K/mcL (140-400); Red Blood Count 3.44 M/mcL (4.19-5.50); Red Cell Distribution Width 12.8 % (11.5-14.5); Segmented Neutrophils % 69.5 %; White Blood Count 5.2 K/mcL (4.3-11.1)
[2020-08-20] MEDS ORDERED: Gadolinium Contrast Agent (WT Based) IV PRN (22:49)
[2020-08-20 22:57] LABS: Prothrombin Time 22.2 Seconds (9.4-12.1)
[2020-08-20 23:00] LABS: Activated Partial Thrombo Time 30.4 Seconds (26.0-36.0)
[2020-08-20 23:13] LABS: Alanine Aminotransferase 13 Units/L (7-52); Albumin 3.9 g/dL (3.5-5.7); Albumin/Globulin Ratio 1.3 (1.1-2.2); Alkaline Phosphatase 98 Units/L (34-104); Aspartate Amino Transferase 15 Units/L (13-39); BUN/Creatinine Ratio 18 (6-26); Bilirubin,Direct 0.2 mg/dL (0.0-0.2); Bilirubin,Indirect 0.3 mg/dL (0.0-1.0); Bilirubin,Total 0.5 mg/dL (0.3-1.0); Blood Urea Nitrogen 24 mg/dL (8-23); Calcium 9.3 mg/dL (8.6-10.3); Carbon Dioxide 29 mEq/L (23-29); Chloride 102 mEq/L (98-107); Globulin 2.9 g/dL (2.4-3.5); Glucose 166 mg/dL (70-105); Lipase 4 Units/L (11-82); Magnesium 1.6 mg/dL (1.6-2.6); Osmolality,Calculated 292 (280-300); Phosphorous 2.7 mg/dL (2.7-4.5); Potassium 4.1 mEq/L (3.5-5.1); Sodium 137 mEq/L (136-145); Total Protein 6.8 g/dL (6.4-8.9); Troponin I 0.03 ng/mL (< 0.04); eGFR For African Americans > 60 (> 60); eGFR For Non-African Americans 51 (> 60)
[2020-08-21 03:31] LABS: Bilirubin,Urine Negative (Negative); Blood,Urine Negative (Negative); Clarity,Urine Clear (Clear); Color,Urine Yellow (Yellow); Glucose,Urine (UA) 100 mg/dL (Normal); Hyaline Casts,Urine Few per lpf (None Seen); Ketones,Urine Negative (Negative); Leukocyte Esterase,Urine Negative (Negative); Mucus,Urine Few per lpf (None-Few); Nitrite,Urine Negative (Negative); Protein,Urine Negative (Neg-Trace); RBC,Urine 0-3 per hpf (0-3); Specific Gravity,Urine 1.015 (1.010-1.025); Urobilinogen,Urine Normal (Normal); WBC,Urine 0-3 per hpf (0-3)
[2020-08-21] MEDS ORDERED: *HR* FentaNYL (PF) 100 MCG/2 ML VIAL IVP ONE (04:12)
[2020-08-21] MEDS ORDERED: Ondansetron 4 MG/2 ML VIAL IVP PRN (09:18)
[2020-08-21] MEDS ORDERED: Naloxone 0.4 MG/ML INJ IVP PRN (09:18)
[2020-08-21] MEDS ORDERED: Melatonin 3 MG TABLET PO PRN (09:18)
[2020-08-21] MEDS ORDERED: Acetaminophen 325 MG TABLET PO PRN (09:18)
[2020-08-21] MEDS ORDERED: D5% in Water 1,000 ML IVC PRN (09:20)
[2020-08-21] MEDS ORDERED: *HR* Dextrose 50 % in Water (Vial) 50 ML VIAL IVP PRN (09:20)
[2020-08-21] MEDS ORDERED: Dextrose Gel 15 GM/37.5 ML TUBE PO PRN ×2 (09:20)
[2020-08-21 10:34] LABS: Estimated Average Glucose 214 mg/dl; Hemoglobin A1C 9.1 %
[2020-08-21] MEDS ORDERED: *HR* OxyCODONE Immed Rel 15 MG TABLET PO PRN (11:10)
[2020-08-21] MEDS: carvediloL 6.25 MG TABLET PO SCH ×2 (13:13→17:19)
[2020-08-21] MEDS: Furosemide 40 MG TABLET PO SCH (13:14)
[2020-08-21] MEDS: Insulin LISPRO 300 UNITS/3 ML VIAL SUBQ SCH ×2 (13:45→17:49)
[2020-08-21] MEDS: Gabapentin 300 MG CAPSULE PO SCH ×2 (17:19→20:19)
[2020-08-21] MEDS: Morphine Sulfate ER (12 HR) 30 MG TABLET.ER PO SCH (17:19)
[2020-08-21] MEDS ORDERED: *HR* Warfarin 2 MG TABLET PO SCH (18:00)
[2020-08-21] MEDS ORDERED: Insulin LISPRO 300 UNITS/3 ML VIAL SUBQ SCH (21:00)
[2020-08-21] MEDS ORDERED: Insulin DETEMIR 100 UNIT/ML X5UNITS SUBQ SCH (21:00)
[2020-08-22] MEDS: Morphine Sulfate ER (12 HR) 30 MG TABLET.ER PO SCH ×2 (00:39→10:48)
[2020-08-22 00:42] LABS: Acinetobacter baumannii by PCR Not Detected (Not Detect); Candida albicans by PCR Not Detected (Not Detect); Candida glabrata by PCR Not Detected (Not Detect); Candida krusei by PCR Not Detected (Not Detect); Candida parapsilosis by PCR Not Detected (Not Detect); Candida tropicalis by PCR Not Detected (Not Detect); Enterobacter cloacae Cmplx PCR Not Detected (Not Detect); Enterobacteriaceae by PCR Not Detected (Not Detect); Enterococcus by PCR Not Detected (Not Detect); Escherichia coli by PCR Not Detected (Not Detect); Klebsiella oxytoca by PCR Not Detected (Not Detect); Klebsiella pneumoniae by PCR Not Detected (Not Detect); Proteus by PCR Not Detected (Not Detect); Pseudomonas aeruginosa by PCR Not Detected (Not Detect); Serratia marcescens by PCR Not Detected (Not Detect); Staphylococcus aureus by PCR Not Detected (Not Detect); Staphylococcus by PCR DETECTED (Not Detect); Streptococcus agalactiae(B)PCR Not Detected (Not Detect); Streptococcus by PCR Not Detected (Not Detect); Streptococcus pneumoniae PCR Not Detected (Not Detect); Streptococcus pyogenes (A) PCR Not Detected (Not Detect); mecA Methicillin-Resist Gene DETECTED (Not Detect)
[2020-08-22 05:28] LABS: Hematocrit 38.1 % (37.5-50.1); Mean Corpuscular HGB Conc 33.9 g/dL (31.6-35.5); Mean Corpuscular Hemoglobin 31.3 pg (28.0-33.3); Mean Corpuscular Volume 92.5 fL (83.0-100.0); Mean Platelet Volume 11.2 fL (9.4-12.4); Platelet Count 181 K/mcL (140-400); Red Blood Count 4.12 M/mcL (4.19-5.50); Red Cell Distribution Width 13.1 % (11.5-14.5); White Blood Count 5.6 K/mcL (4.3-11.1)
[2020-08-22 05:31] LABS: Hemoglobin 12.9 g/dL (12.9-16.9)
[2020-08-22 05:40] LABS: Calcium 9.5 mg/dL (8.6-10.3); Magnesium 1.7 mg/dL (1.6-2.6); Potassium 3.3 mEq/L (3.5-5.1)
[2020-08-22] MEDS ORDERED: Potassium Chloride Elixir 20 MEQ/15 ML UDC PO ONE (07:34)
[2020-08-22] MEDS ORDERED: Aspirin 81 MG TAB.CHEW PO SCH (09:00)
[2020-08-22] MEDS: Insulin LISPRO 300 UNITS/3 ML VIAL SUBQ SCH ×3 (09:19→17:35)
[2020-08-22] MEDS: Furosemide 40 MG TABLET PO SCH (09:29)
[2020-08-22] MEDS: Gabapentin 300 MG CAPSULE PO SCH ×2 (09:51→14:42)
[2020-08-22] MEDS: carvediloL 6.25 MG TABLET PO SCH (11:41)
[2020-08-22 15:23] VITALS: BP 91/59
[2020-08-22 16:43] LABS: INR 1.5; Prothrombin Time 16.6 Seconds (9.4-12.1)
[2020-08-22] MEDS ORDERED: *HR* Warfarin 3 MG TABLET PO ONE (18:00)
[2020-08-22] MEDS ORDERED: Warfarin perPT PO PRN (18:00)
[2020-08-22] MEDS ORDERED: *HR* Warfarin 3 MG TABLET PO SCH (18:00)
[2020-08-22] MEDS ORDERED: Insulin DETEMIR 100 UNIT/ML X5UNITS SUBQ SCH (21:00)
== END 2020-08-22 18:07 | disposition short-term general hospital (02) ==
LOC: 2NENU 20:46 → EMEROOARM 20:46 → SUATTDRO 08-21 09:45 → 2NENU 08-21 11:29
PROVIDERS: ADMIT Internal Medicine; ATTEND Internal Medicine

== ENCOUNTER 2020-08-30 11:23 | Inpatient (IN) ==
[2020-08-30 12:31] LABS: Amorphous Sediment,Urine Few per hpf (None-Few); Bacteria,Urine Few per hpf (None-Few); Bilirubin,Urine Negative (Negative); Blood,Urine Large (Negative); Clarity,Urine Turbid (Clear); Color,Urine Yellow (Yellow); Glucose,Urine (UA) 70 mg/dL (Normal); Ketones,Urine 10 mg/dL (Negative); Leukocyte Esterase,Urine Large (Negative); Mucus,Urine Few per lpf (None-Few); Nitrite,Urine Negative (Negative); PH,Urine 5.5 pH Units (5.0-8.0); Protein,Urine 200 mg/dL (Neg-Trace); RBC,Urine 50-100 per hpf (0-3); Specific Gravity,Urine 1.019 (1.010-1.025); Urobilinogen,Urine Normal (Normal); WBC,Urine TNTC per hpf (0-3)
[2020-08-30 13:20] LABS: Hematocrit 35.7 % (37.5-50.1); Hemoglobin 12.1 g/dL (12.9-16.9); Mean Corpuscular HGB Conc 33.9 g/dL (31.6-35.5); Mean Corpuscular Hemoglobin 30.7 pg (28.0-33.3); Mean Corpuscular Volume 90.6 fL (83.0-100.0); Mean Platelet Volume 10.3 fL (9.4-12.4); Platelet Count 267 K/mcL (140-400); Red Blood Count 3.94 M/mcL (4.19-5.50); Red Cell Distribution Width 13.2 % (11.5-14.5); White Blood Count 23.6 K/mcL (4.3-11.1)
[2020-08-30 13:35] LABS: Calcium 9.4 mg/dL (8.6-10.3); Potassium 4.1 mEq/L (3.5-5.1)
[2020-08-30 13:43] LABS: Lymphocytes # 0.9 K/mcL (0.6-4.6); Monocytes # 0.9 K/mcL (0.0-1.3); Neutrophils # 21.7 K/mcL (1.6-8.9); Platelet Estimate Normal (Normal)
[2020-08-30] MEDS ORDERED: Piperacillin/Tazobactam 3.375 GM in 0.9 % Sodium Chloride Mini Bag 100 ML IVPB ONE (13:55)
[2020-08-30] MEDS ORDERED: 0.9 % Sodium Chloride 1,000 ML IVC ONE (14:05)
[2020-08-30] MEDS ORDERED: Ondansetron 4 MG/2 ML VIAL IVP PRN (14:36)
[2020-08-30] MEDS ORDERED: Naloxone 0.4 MG/ML INJ IVP PRN (14:36)
[2020-08-30] MEDS ORDERED: Acetaminophen 325 MG TABLET PO PRN (14:36)
[2020-08-30] MEDS ORDERED: *HR* Dextrose 50 % in Water (Vial) 50 ML VIAL IVP PRN (14:39)
[2020-08-30] MEDS ORDERED: Dextrose Gel 15 GM/37.5 ML TUBE PO PRN ×2 (14:39)
[2020-08-30] MEDS ORDERED: D5% in Water 1,000 ML IVC PRN (14:39)
[2020-08-30] MEDS: Vancomycin 1,500 MG/265 ML IV.SOLN IVPB SCH (17:38)
[2020-08-30] MEDS: Insulin LISPRO 300 UNITS/3 ML VIAL SUBQ SCH (17:56)
[2020-08-30 19:56] LABS: INR 1.5; Prothrombin Time 17.4 Seconds (9.4-12.1)
[2020-08-30 20:02] LABS: Estimated Average Glucose 223 mg/dl; Hemoglobin A1C 9.4 %
[2020-08-31] MEDS: Gabapentin 300 MG CAPSULE PO SCH ×4 (00:01→20:56)
[2020-08-31] MEDS: Insulin LISPRO 300 UNITS/3 ML VIAL SUBQ SCH ×5 (00:04→20:55)
[2020-08-31] MEDS ORDERED: *HR* Promethazine 25 MG/ML VIAL IM ONE (02:28)
[2020-08-31 04:15] LABS: Hematocrit 30.9 % (37.5-50.1); Hemoglobin 10.9 g/dL (12.9-16.9); Mean Corpuscular HGB Conc 35.3 g/dL (31.6-35.5); Mean Corpuscular Hemoglobin 31.7 pg (28.0-33.3); Mean Corpuscular Volume 89.8 fL (83.0-100.0); Mean Platelet Volume 10.2 fL (9.4-12.4); Platelet Count 228 K/mcL (140-400); Red Blood Count 3.44 M/mcL (4.19-5.50); Red Cell Distribution Width 13.3 % (11.5-14.5); White Blood Count 24.3 K/mcL (4.3-11.1)
[2020-08-31 04:25] LABS: Fibrinogen 498 mg/dL (169-393)
[2020-08-31 04:26] LABS: INR 1.6; Prothrombin Time 18.5 Seconds (9.4-12.1)
[2020-08-31 04:32] LABS: % Iron Saturation 6 % (20-55); Alanine Aminotransferase 20 Units/L (7-52); Albumin 3.2 g/dL (3.5-5.7); Albumin/Globulin Ratio 0.9 (1.1-2.2); Alkaline Phosphatase 95 Units/L (34-104); Aspartate Amino Transferase 61 Units/L (13-39); BUN/Creatinine Ratio 24 (6-26); Bilirubin,Direct 0.4 mg/dL (0.0-0.2); Bilirubin,Indirect 0.7 mg/dL (0.0-1.0); Bilirubin,Total 1.1 mg/dL (0.3-1.0); Blood Urea Nitrogen 34 mg/dL (8-23); Carbon Dioxide 20 mEq/L (23-29); Chloride 107 mEq/L (98-107); Globulin 3.4 g/dL (2.4-3.5); Glucose 192 mg/dL (70-105); Iron 10 mcg/dL (65-175); Magnesium 1.9 mg/dL (1.6-2.6); Osmolality,Calculated 305 (280-300); Potassium 3.7 mEq/L (3.5-5.1); Sodium 141 mEq/L (136-145); Total Protein 6.6 g/dL (6.4-8.9); Transferrin 121 mg/dL (203-362); eGFR For African Americans > 60 (> 60); eGFR For Non-African Americans 50 (> 60)
[2020-08-31 04:42] LABS: Lymphocytes # 0.5 K/mcL (0.6-4.6); Neutrophils # 22.8 K/mcL (1.6-8.9); Platelet Estimate Normal (Normal)
[2020-08-31 04:43] LABS: Anisocytosis 1+ (Not Present); Poikilocytosis 1+ (Not Present); Reactive Lymphocytes Present (Not Present)
[2020-08-31 04:46] LABS: D-Dimer 42289 ng/mLFEU (0-500)
[2020-08-31 04:48] LABS: Ferritin 1215 ng/mL (20-250)
[2020-08-31 04:59] LABS: Folate > 22.3 ng/mL (3.0-16.0); Vitamin B12 > 1500 pg/mL (250-1100)
[2020-08-31] MEDS: Acetaminophen IV 1,000 MG/100 ML BAG IVPB SCH ×3 (05:54→16:45)
[2020-08-31] MEDS ORDERED: *HR* Enoxaparin 40 MG/0.4 ML SYRINGE SQ SCH (07:00)
[2020-08-31] MEDS ORDERED: *HR* Heparin 5,000 UNIT/ML VIAL IVP ONE (07:27)
[2020-08-31] MEDS ORDERED: *HR* Heparin 5,000 UNIT/ML VIAL IVP PRN ×2 (07:27)
[2020-08-31 07:56] LABS: Hemoglobin 10.2 g/dL (12.9-16.9); Mean Corpuscular HGB Conc 35.2 g/dL (31.6-35.5); Mean Corpuscular Hemoglobin 31.3 pg (28.0-33.3); Mean Platelet Volume 10.2 fL (9.4-12.4); Platelet Count 208 K/mcL (140-400); Red Blood Count 3.26 M/mcL (4.19-5.50); Red Cell Distribution Width 13.4 % (11.5-14.5); White Blood Count 23.6 K/mcL (4.3-11.1)
[2020-08-31] MEDS ORDERED: Furosemide 40 MG TABLET PO SCH (09:00)
[2020-08-31] MEDS: carvediloL 6.25 MG TABLET PO SCH ×2 (09:12→17:46)
[2020-08-31] MEDS: Folic Acid 1 MG TABLET PO SCH (09:13)
[2020-08-31] MEDS: Multivit/Ca/Min/Fe/FA 1 TAB TABLET PO SCH (09:13)
[2020-08-31] MEDS: Cholecalciferol (D-3) 1,000 UNIT (25MCG) TABLET PO SCH (09:13)
[2020-08-31] MEDS: Aspirin 325 MG TABLET PO SCH (09:14)
[2020-08-31] MEDS: Heparin 25,000UNIT/250ML 1/2NS 25,000 UNIT/250 ML IV.SOLN IVC SCH (09:15)
[2020-08-31] MEDS: Piperacillin/Tazobactam 3.375 GM in 0.9 % Sodium Chloride Mini Bag 100 ML IVPB SCH ×3 (09:16→17:47)
[2020-08-31] MEDS ORDERED: Potassium Phosphate 44 MEQ in 0.9 % Sodium Chloride 250 ML IVPB ONE (10:38)
[2020-08-31] MEDS: Pantoprazole 40 MG VIAL IVP SCH (17:47)
[2020-08-31] MEDS ORDERED: Pantoprazole 40 MG VIAL IVP SCH (18:00)
[2020-08-31] MEDS: Vancomycin 1,500 MG/265 ML IV.SOLN IVPB SCH (18:52)
[2020-09-01] MEDS: Acetaminophen IV 1,000 MG/100 ML BAG IVPB SCH ×4 (00:36→23:25)
[2020-09-01] MEDS: Piperacillin/Tazobactam 3.375 GM in 0.9 % Sodium Chloride Mini Bag 100 ML IVPB SCH ×4 (00:36→23:32)
[2020-09-01 01:13] LABS: Hematocrit 31.4 % (37.5-50.1); Hemoglobin 11.1 g/dL (12.9-16.9); Mean Corpuscular HGB Conc 35.4 g/dL (31.6-35.5); Mean Corpuscular Hemoglobin 31.3 pg (28.0-33.3); Mean Corpuscular Volume 88.5 fL (83.0-100.0); Mean Platelet Volume 9.9 fL (9.4-12.4); Platelet Count 240 K/mcL (140-400); Red Blood Count 3.55 M/mcL (4.19-5.50); Red Cell Distribution Width 13.7 % (11.5-14.5); White Blood Count 23.5 K/mcL (4.3-11.1)
[2020-09-01 01:30] LABS: Calcium 8.8 mg/dL (8.6-10.3); Potassium 3.7 mEq/L (3.5-5.1)
[2020-09-01 01:31] LABS: INR 2.3; Prothrombin Time 26.4 Seconds (9.4-12.1)
[2020-09-01 01:42] LABS: Fibrinogen 458 mg/dL (169-393)
[2020-09-01 02:04] LABS: D-Dimer 18156 ng/mLFEU (0-500)
[2020-09-01 02:26] LABS: Lymphocytes # 0.9 K/mcL (0.6-4.6); Monocytes # 1.4 K/mcL (0.0-1.3); Neutrophils # 21.2 K/mcL (1.6-8.9)
[2020-09-01 02:27] LABS: Platelet Estimate Normal (Normal)
[2020-09-01] MEDS: Pantoprazole 40 MG VIAL IVP SCH ×2 (05:21→16:56)
[2020-09-01] MEDS: Insulin LISPRO 300 UNITS/3 ML VIAL SUBQ SCH ×3 (08:26→16:54)
[2020-09-01] MEDS: carvediloL 6.25 MG TABLET PO SCH ×2 (08:29→16:55)
[2020-09-01] MEDS: Gabapentin 300 MG CAPSULE PO SCH ×3 (08:30→19:48)
[2020-09-01] MEDS: Cholecalciferol (D-3) 1,000 UNIT (25MCG) TABLET PO SCH (08:30)
[2020-09-01] MEDS: Aspirin 325 MG TABLET PO SCH (08:30)
[2020-09-01] MEDS: Folic Acid 1 MG TABLET PO SCH (08:30)
[2020-09-01] MEDS: Multivit/Ca/Min/Fe/FA 1 TAB TABLET PO SCH (08:30)
[2020-09-01] MEDS: Heparin 25,000UNIT/250ML 1/2NS 25,000 UNIT/250 ML IV.SOLN IVC SCH (09:14)
[2020-09-01] MEDS: *HR* OxyCODONE Immed Rel 5 MG TABLET PO PRN ×2 (12:28→21:59)
[2020-09-01] MEDS: Vancomycin 1,500 MG/265 ML IV.SOLN IVPB SCH (18:30)
[2020-09-01] MEDS: Insulin DETEMIR 100 UNIT/ML X5UNITS SUBQ SCH (19:49)
[2020-09-02 01:12] LABS: Hematocrit 30.5 % (37.5-50.1); Hemoglobin 10.5 g/dL (12.9-16.9); Mean Corpuscular HGB Conc 34.4 g/dL (31.6-35.5); Mean Corpuscular Hemoglobin 30.7 pg (28.0-33.3); Mean Corpuscular Volume 89.2 fL (83.0-100.0); Mean Platelet Volume 10.1 fL (9.4-12.4); Platelet Count 244 K/mcL (140-400); Red Blood Count 3.42 M/mcL (4.19-5.50); White Blood Count 19.2 K/mcL (4.3-11.1)
[2020-09-02 01:31] LABS: Anisocytosis 1+ (Not Present); Lymphocytes # 0.4 K/mcL (0.6-4.6); Monocytes # 0.8 K/mcL (0.0-1.3); Neutrophils # 18.1 K/mcL (1.6-8.9); Platelet Estimate Normal (Normal)
[2020-09-02 01:32] LABS: Calcium 8.3 mg/dL (8.6-10.3); Magnesium 2.1 mg/dL (1.6-2.6); Phosphorous 3.1 mg/dL (2.7-4.5); Potassium 4.3 mEq/L (3.5-5.1)
[2020-09-02] MEDS: Pantoprazole 40 MG VIAL IVP SCH (04:51)
[2020-09-02] MEDS: Acetaminophen IV 1,000 MG/100 ML BAG IVPB SCH ×2 (09:26→15:37)
[2020-09-02] MEDS: Gabapentin 300 MG CAPSULE PO SCH ×3 (09:30→21:42)
[2020-09-02] MEDS: Cholecalciferol (D-3) 1,000 UNIT (25MCG) TABLET PO SCH (09:30)
[2020-09-02] MEDS: Aspirin 325 MG TABLET PO SCH (09:30)
[2020-09-02] MEDS: Folic Acid 1 MG TABLET PO SCH (09:30)
[2020-09-02] MEDS: *HR* OxyCODONE Immed Rel 5 MG TABLET PO PRN ×2 (09:30→21:57)
[2020-09-02] MEDS: Heparin 25,000UNIT/250ML 1/2NS 25,000 UNIT/250 ML IV.SOLN IVC SCH (09:31)
[2020-09-02] MEDS: Multivit/Ca/Min/Fe/FA 1 TAB TABLET PO SCH (09:31)
[2020-09-02] MEDS: carvediloL 6.25 MG TABLET PO SCH ×2 (09:31→15:37)
[2020-09-02] MEDS: Piperacillin/Tazobactam 3.375 GM in 0.9 % Sodium Chloride Mini Bag 100 ML IVPB SCH ×2 (09:32→15:38)
[2020-09-02] MEDS: Insulin LISPRO 300 UNITS/3 ML VIAL SUBQ SCH ×3 (09:32→15:49)
[2020-09-02] MEDS: Insulin DETEMIR 100 UNIT/ML X5UNITS SUBQ SCH (21:42)
[2020-09-03] MEDS: Piperacillin/Tazobactam 3.375 GM in 0.9 % Sodium Chloride Mini Bag 100 ML IVPB SCH ×3 (00:32→14:58)
[2020-09-03 01:27] LABS: Basophils % 0.2 %; Hematocrit 28.9 % (37.5-50.1); Hemoglobin 10.3 g/dL (12.9-16.9); Immature Granulocytes % 1.2 % (0-4); Lymphocytes # 0.5 K/mcL (0.6-4.6); Lymphocytes % 3.8 %; Mean Corpuscular HGB Conc 35.6 g/dL (31.6-35.5); Mean Corpuscular Hemoglobin 31.6 pg (28.0-33.3); Mean Corpuscular Volume 88.7 fL (83.0-100.0); Mean Platelet Volume 10.3 fL (9.4-12.4); Monocytes # 0.6 K/mcL (0.0-1.3); Monocytes % 4.5 %; Neutrophils # 12.5 K/mcL (1.6-8.9); Nucleated Red Blood Cells 0.1 /100 WBC (0); Platelet Count 251 K/mcL (140-400); Red Blood Count 3.26 M/mcL (4.19-5.50); Red Cell Distribution Width 13.8 % (11.5-14.5); Segmented Neutrophils % 90.3 %; White Blood Count 13.9 K/mcL (4.3-11.1)
[2020-09-03 01:46] LABS: BUN/Creatinine Ratio 28 (6-26); Blood Urea Nitrogen 38 mg/dL (8-23); Carbon Dioxide 21 mEq/L (23-29); Chloride 106 mEq/L (98-107); Glucose 301 mg/dL (70-105); Osmolality,Calculated 300 (280-300); Potassium 3.7 mEq/L (3.5-5.1); Sodium 135 mEq/L (136-145); eGFR For African Americans > 60 (> 60); eGFR For Non-African Americans 51 (> 60)
[2020-09-03] MEDS: Heparin 25,000UNIT/250ML 1/2NS 25,000 UNIT/250 ML IV.SOLN IVC SCH (06:49)
[2020-09-03] MEDS: Cholecalciferol (D-3) 1,000 UNIT (25MCG) TABLET PO SCH (08:54)
[2020-09-03] MEDS: Gabapentin 300 MG CAPSULE PO SCH ×3 (08:54→21:12)
[2020-09-03] MEDS: Folic Acid 1 MG TABLET PO SCH (08:54)
[2020-09-03] MEDS: Aspirin 81 MG TAB.CHEW PO SCH (08:54)
[2020-09-03] MEDS: carvediloL 6.25 MG TABLET PO SCH ×2 (08:55→16:35)
[2020-09-03] MEDS: *HR* OxyCODONE Immed Rel 5 MG TABLET PO PRN ×2 (08:55→21:15)
[2020-09-03] MEDS: Multivit/Ca/Min/Fe/FA 1 TAB TABLET PO SCH (08:55)
[2020-09-03] MEDS: Pantoprazole 40 MG VIAL IVP SCH (08:55)
[2020-09-03] MEDS: Insulin LISPRO 300 UNITS/3 ML VIAL SUBQ SCH ×3 (08:56→16:36)
[2020-09-03] MEDS ORDERED: Furosemide 40 MG/4 ML VIAL IVP ONE (14:39)
[2020-09-03] MEDS: Ipratropium 1 PUFF INHALER IH SCH ×3 (15:26→23:19)
[2020-09-03] MEDS ORDERED: Warfarin perPT PO PRN (18:00)
[2020-09-03] MEDS ORDERED: *HR* Warfarin 3 MG TABLET PO ONE (18:00)
[2020-09-03] MEDS: Insulin DETEMIR 100 UNIT/ML X5UNITS SUBQ SCH (21:27)
[2020-09-03] MEDS: Acetaminophen 325 MG TABLET PO PRN (23:39)
[2020-09-04 01:31] LABS: Basophils % 0.4 %; Eosinophils # 0.1 K/mcL (0.0-0.6); Eosinophils % 0.6 %; Hematocrit 28.2 % (37.5-50.1); Hemoglobin 9.7 g/dL (12.9-16.9); Lymphocytes # 0.6 K/mcL (0.6-4.6); Lymphocytes % 6.2 %; Mean Corpuscular HGB Conc 34.4 g/dL (31.6-35.5); Mean Corpuscular Hemoglobin 30.5 pg (28.0-33.3); Mean Corpuscular Volume 88.7 fL (83.0-100.0); Mean Platelet Volume 10.4 fL (9.4-12.4); Monocytes # 0.3 K/mcL (0.0-1.3); Monocytes % 3.8 %; Neutrophils # 7.6 K/mcL (1.6-8.9); Nucleated Red Blood Cells 0.2 /100 WBC (0); Platelet Count 258 K/mcL (140-400); Red Blood Count 3.18 M/mcL (4.19-5.50); Red Cell Distribution Width 13.5 % (11.5-14.5)
[2020-09-04 01:40] LABS: Heparin anti-factor XA UFH 0.45 IU/mL (0.30-0.70)
[2020-09-04 01:42] LABS: Fibrinogen 477 mg/dL (169-393)
[2020-09-04 01:46] LABS: D-Dimer 3399 ng/mLFEU (0-500)
[2020-09-04 01:48] LABS: BUN/Creatinine Ratio 22 (6-26); Blood Urea Nitrogen 30 mg/dL (8-23); Carbon Dioxide 23 mEq/L (23-29); Chloride 105 mEq/L (98-107); Glucose 196 mg/dL (70-105); INR 4.4; Magnesium 1.7 mg/dL (1.6-2.6); Osmolality,Calculated 296 (280-300); Potassium 3.4 mEq/L (3.5-5.1); Prothrombin Time 48.4 Seconds (9.4-12.1); Sodium 137 mEq/L (136-145); eGFR For African Americans > 60 (> 60); eGFR For Non-African Americans 52 (> 60)
[2020-09-04] MEDS: Piperacillin/Tazobactam 3.375 GM in 0.9 % Sodium Chloride Mini Bag 100 ML IVPB SCH ×3 (02:03→17:43)
[2020-09-04] MEDS: Ipratropium 1 PUFF INHALER IH SCH ×5 (03:33→20:01)
[2020-09-04] MEDS: Dexamethasone Sodium Phos/PF 10 MG/ML VIAL IVP SCH (09:28)
[2020-09-04] MEDS: Pantoprazole 40 MG VIAL IVP SCH (09:28)
[2020-09-04] MEDS: Cholecalciferol (D-3) 1,000 UNIT (25MCG) TABLET PO SCH (09:29)
[2020-09-04] MEDS: Multivit/Ca/Min/Fe/FA 1 TAB TABLET PO SCH (09:29)
[2020-09-04] MEDS: Insulin LISPRO 300 UNITS/3 ML VIAL SUBQ SCH ×3 (09:29→17:23)
[2020-09-04] MEDS: Loratadine 10 MG TABLET PO SCH (09:30)
[2020-09-04] MEDS: Aspirin 81 MG TAB.CHEW PO SCH (09:30)
[2020-09-04] MEDS: Folic Acid 1 MG TABLET PO SCH (09:30)
[2020-09-04] MEDS: Gabapentin 300 MG CAPSULE PO SCH ×3 (09:30→20:10)
[2020-09-04] MEDS: carvediloL 6.25 MG TABLET PO SCH ×2 (09:31→17:41)
[2020-09-04] MEDS: *HR* OxyCODONE Immed Rel 5 MG TABLET PO PRN (10:03)
[2020-09-04] MEDS: Insulin DETEMIR 100 UNIT/ML X5UNITS SUBQ SCH (20:42)
[2020-09-05] MEDS: Ipratropium 1 PUFF INHALER IH SCH ×7 (00:05→23:21)
[2020-09-05] MEDS: Piperacillin/Tazobactam 3.375 GM in 0.9 % Sodium Chloride Mini Bag 100 ML IVPB SCH ×3 (02:05→17:26)
[2020-09-05 05:03] LABS: Calcium 8.1 mg/dL (8.6-10.3); Magnesium 2.3 mg/dL (1.6-2.6); Potassium 4.5 mEq/L (3.5-5.1)
[2020-09-05 07:11] LABS: D-Dimer > 128000 ng/mLFEU (0-500)
[2020-09-05] MEDS: Dexamethasone Sodium Phos/PF 10 MG/ML VIAL IVP SCH (08:22)
[2020-09-05] MEDS: Pantoprazole 40 MG VIAL IVP SCH (08:22)
[2020-09-05] MEDS: Folic Acid 1 MG TABLET PO SCH (08:24)
[2020-09-05] MEDS: Gabapentin 300 MG CAPSULE PO SCH ×3 (08:24→19:47)
[2020-09-05] MEDS: Multivit/Ca/Min/Fe/FA 1 TAB TABLET PO SCH (08:24)
[2020-09-05] MEDS: Cholecalciferol (D-3) 1,000 UNIT (25MCG) TABLET PO SCH ×2 (08:24→12:13)
[2020-09-05] MEDS: Loratadine 10 MG TABLET PO SCH (08:24)
[2020-09-05] MEDS: carvediloL 6.25 MG TABLET PO SCH ×2 (08:24→17:22)
[2020-09-05] MEDS: Insulin LISPRO 300 UNITS/3 ML VIAL SUBQ SCH ×3 (08:25→17:23)
[2020-09-05] MEDS: Aspirin 81 MG TAB.CHEW PO SCH (08:25)
[2020-09-05] MEDS ORDERED: *HR* Phytonadione 5 MG TABLET PO ONE (11:21)
[2020-09-05] MEDS: *HR* OxyCODONE Immed Rel 5 MG TABLET PO PRN (12:14)
[2020-09-05] MEDS: Sennosides 8.6 MG TABLET PO SCH (19:48)
[2020-09-05] MEDS: Insulin DETEMIR 100 UNIT/ML X5UNITS SUBQ SCH (23:48)
[2020-09-06] MEDS: Piperacillin/Tazobactam 3.375 GM in 0.9 % Sodium Chloride Mini Bag 100 ML IVPB SCH ×3 (02:24→18:06)
[2020-09-06] MEDS: *HR* OxyCODONE Immed Rel 5 MG TABLET PO PRN ×2 (02:32→15:41)
[2020-09-06 03:05] LABS: Mean Corpuscular Volume 90.7 fL (83.0-100.0)
[2020-09-06 03:06] LABS: Hematocrit 28.2 % (37.5-50.1); Hemoglobin 9.4 g/dL (12.9-16.9); Immature Platelets 12.2 % (1.1-6.1); Mean Corpuscular HGB Conc 33.3 g/dL (31.6-35.5); Mean Corpuscular Hemoglobin 30.2 pg (28.0-33.3); Platelet Count 139 K/mcL (140-400); Red Blood Count 3.11 M/mcL (4.19-5.50); Red Cell Distribution Width 14.8 % (11.5-14.5); White Blood Count 12.6 K/mcL (4.3-11.1)
[2020-09-06 03:24] LABS: Albumin 2.5 g/dL (3.5-5.7); Albumin/Globulin Ratio 0.7 (1.1-2.2); Bilirubin,Direct 0.7 mg/dL (0.0-0.2); Bilirubin,Indirect 1.4 mg/dL (0.0-1.0); Bilirubin,Total 2.1 mg/dL (0.3-1.0); Calcium 8.2 mg/dL (8.6-10.3); Globulin 3.4 g/dL (2.4-3.5); Magnesium 2.3 mg/dL (1.6-2.6); Potassium 4.7 mEq/L (3.5-5.1); Total Protein 5.9 g/dL (6.4-8.9)
[2020-09-06 03:26] LABS: Prothrombin Time 62.5 Seconds (9.4-12.1)
[2020-09-06 03:28] LABS: INR 5.7
[2020-09-06] MEDS: Ipratropium 1 PUFF INHALER IH SCH ×6 (03:43→23:10)
[2020-09-06] MEDS: Insulin LISPRO 300 UNITS/3 ML VIAL SUBQ SCH ×4 (08:20→21:00)
[2020-09-06] MEDS: Dexamethasone Sodium Phos/PF 10 MG/ML VIAL IVP SCH (09:24)
[2020-09-06] MEDS: Sennosides 8.6 MG TABLET PO SCH ×2 (09:25→19:59)
[2020-09-06] MEDS: Cholecalciferol (D-3) 1,000 UNIT (25MCG) TABLET PO SCH (09:25)
[2020-09-06] MEDS: Multivit/Ca/Min/Fe/FA 1 TAB TABLET PO SCH (09:25)
[2020-09-06] MEDS: Folic Acid 1 MG TABLET PO SCH (09:26)
[2020-09-06] MEDS: Loratadine 10 MG TABLET PO SCH (09:26)
[2020-09-06] MEDS: carvediloL 6.25 MG TABLET PO SCH ×2 (09:26→17:58)
[2020-09-06] MEDS: Aspirin 81 MG TAB.CHEW PO SCH (09:26)
[2020-09-06] MEDS: Gabapentin 300 MG CAPSULE PO SCH ×3 (09:27→19:59)
[2020-09-06] MEDS: Pantoprazole 40 MG VIAL IVP SCH (09:27)
[2020-09-06] MEDS: Insulin DETEMIR 100 UNIT/ML X5UNITS SUBQ SCH ×2 (15:41→21:00)
[2020-09-06] MEDS: Acetaminophen 325 MG TABLET PO PRN (21:00)
[2020-09-07] MEDS: Piperacillin/Tazobactam 3.375 GM in 0.9 % Sodium Chloride Mini Bag 100 ML IVPB SCH ×3 (02:27→17:53)
[2020-09-07] MEDS: Ipratropium 1 PUFF INHALER IH SCH ×6 (03:35→23:22)
[2020-09-07] MEDS: *HR* OxyCODONE Immed Rel 5 MG TABLET PO PRN ×2 (04:43→21:13)
[2020-09-07 05:17] LABS: Hematocrit 25.8 % (37.5-50.1); Hemoglobin 8.8 g/dL (12.9-16.9); Immature Platelets 13.2 % (1.1-6.1); Mean Corpuscular HGB Conc 34.1 g/dL (31.6-35.5); Mean Corpuscular Hemoglobin 30.3 pg (28.0-33.3); Mean Platelet Volume 10.8 fL (9.4-12.4); Red Blood Count 2.9 M/mcL (4.19-5.50); Red Cell Distribution Width 14.6 % (11.5-14.5); White Blood Count 14.6 K/mcL (4.3-11.1)
[2020-09-07 05:29] LABS: INR 4.6; Prothrombin Time 51.2 Seconds (9.4-12.1)
[2020-09-07 05:39] LABS: Albumin 2.4 g/dL (3.5-5.7); Albumin/Globulin Ratio 0.7 (1.1-2.2); Bilirubin,Direct 0.5 mg/dL (0.0-0.2); Bilirubin,Indirect 1.1 mg/dL (0.0-1.0); Bilirubin,Total 1.6 mg/dL (0.3-1.0); Globulin 3.3 g/dL (2.4-3.5); Magnesium 2.4 mg/dL (1.6-2.6); Phosphorous 3.2 mg/dL (2.7-4.5); Potassium 4.3 mEq/L (3.5-5.1); Total Protein 5.7 g/dL (6.4-8.9)
[2020-09-07] MEDS: Insulin LISPRO 300 UNITS/3 ML VIAL SUBQ SCH ×5 (05:50→21:14)
[2020-09-07] MEDS: Aspirin 81 MG TAB.CHEW PO SCH (09:00)
[2020-09-07] MEDS: Dexamethasone Sodium Phos/PF 10 MG/ML VIAL IVP SCH (09:01)
[2020-09-07] MEDS: Sennosides 8.6 MG TABLET PO SCH ×2 (09:01→21:13)
[2020-09-07] MEDS: Multivit/Ca/Min/Fe/FA 1 TAB TABLET PO SCH (09:01)
[2020-09-07] MEDS: Gabapentin 300 MG CAPSULE PO SCH ×3 (09:01→21:13)
[2020-09-07] MEDS: Cholecalciferol (D-3) 1,000 UNIT (25MCG) TABLET PO SCH (09:01)
[2020-09-07] MEDS: Loratadine 10 MG TABLET PO SCH (09:01)
[2020-09-07] MEDS: Folic Acid 1 MG TABLET PO SCH (09:01)
[2020-09-07] MEDS: carvediloL 6.25 MG TABLET PO SCH ×2 (09:02→17:53)
[2020-09-07] MEDS: Pantoprazole 40 MG VIAL IVP SCH (09:02)
[2020-09-07] MEDS: Insulin DETEMIR 100 UNIT/ML X5UNITS SUBQ SCH ×2 (10:59→21:13)
[2020-09-07 12:02] LABS: VBG HCO3 18 mEq/L (21-27); VBG PCO2 23 mmHg (41-51); VBG PH 7.49 pH Units (7.32-7.42); VBG PO2 200 mmHg (25-50)
[2020-09-08] MEDS: Piperacillin/Tazobactam 3.375 GM in 0.9 % Sodium Chloride Mini Bag 100 ML IVPB SCH ×3 (03:12→17:13)
[2020-09-08] MEDS: Ipratropium 1 PUFF INHALER IH SCH ×6 (03:56→23:07)
[2020-09-08 05:28] LABS: Hematocrit 25.8 % (37.5-50.1); Hemoglobin 8.7 g/dL (12.9-16.9); Mean Corpuscular HGB Conc 33.7 g/dL (31.6-35.5); Mean Corpuscular Hemoglobin 30.4 pg (28.0-33.3); Mean Corpuscular Volume 90.2 fL (83.0-100.0); Mean Platelet Volume 11.9 fL (9.4-12.4); Red Blood Count 2.86 M/mcL (4.19-5.50); Red Cell Distribution Width 14.7 % (11.5-14.5); White Blood Count 16.1 K/mcL (4.3-11.1)
[2020-09-08 05:36] LABS: INR 3.9
[2020-09-08 05:45] LABS: Prothrombin Time 43.8 Seconds (9.4-12.1)
[2020-09-08 05:47] LABS: Calcium 8.3 mg/dL (8.6-10.3); Magnesium 2.3 mg/dL (1.6-2.6); Potassium 4.4 mEq/L (3.5-5.1)
[2020-09-08] MEDS: Folic Acid 1 MG TABLET PO SCH (08:52)
[2020-09-08] MEDS: *HR* OxyCODONE Immed Rel 5 MG TABLET PO PRN ×3 (08:53→20:50)
[2020-09-08] MEDS: Sennosides 8.6 MG TABLET PO SCH ×2 (08:53→20:51)
[2020-09-08] MEDS: Multivit/Ca/Min/Fe/FA 1 TAB TABLET PO SCH (08:53)
[2020-09-08] MEDS: Cholecalciferol (D-3) 1,000 UNIT (25MCG) TABLET PO SCH (08:53)
[2020-09-08] MEDS: Gabapentin 300 MG CAPSULE PO SCH ×3 (08:53→20:50)
[2020-09-08] MEDS: Loratadine 10 MG TABLET PO SCH (08:53)
[2020-09-08] MEDS: Aspirin 81 MG TAB.CHEW PO SCH (08:53)
[2020-09-08] MEDS: carvediloL 6.25 MG TABLET PO SCH ×2 (08:53→16:07)
[2020-09-08] MEDS: Insulin LISPRO 300 UNITS/3 ML VIAL SUBQ SCH ×4 (08:56→20:51)
[2020-09-08] MEDS: Dexamethasone Sodium Phos/PF 10 MG/ML VIAL IVP SCH (09:03)
[2020-09-08] MEDS: Pantoprazole 40 MG VIAL IVP SCH (09:06)
[2020-09-08] MEDS: Insulin DETEMIR 100 UNIT/ML X5UNITS SUBQ SCH ×2 (11:19→20:51)
[2020-09-08] MEDS ORDERED: *HR* OxyCODONE Immed Rel 5 MG TABLET PO ONE (11:39)
[2020-09-08] MEDS: Acetaminophen 325 MG TABLET PO PRN (20:51)
[2020-09-09] MEDS: Piperacillin/Tazobactam 3.375 GM in 0.9 % Sodium Chloride Mini Bag 100 ML IVPB SCH ×3 (02:49→18:14)
[2020-09-09] MEDS: *HR* OxyCODONE Immed Rel 5 MG TABLET PO PRN ×4 (02:50→21:25)
[2020-09-09] MEDS: Ipratropium 1 PUFF INHALER IH SCH ×6 (03:51→23:08)
[2020-09-09 06:43] LABS: INR 3.1; Prothrombin Time 34.3 Seconds (9.4-12.1)
[2020-09-09 07:01] LABS: Calcium 8.3 mg/dL (8.6-10.3); Potassium 4.7 mEq/L (3.5-5.1)
[2020-09-09] MEDS: Pantoprazole 40 MG VIAL IVP SCH (08:12)
[2020-09-09] MEDS: Dexamethasone Sodium Phos/PF 10 MG/ML VIAL IVP SCH (08:13)
[2020-09-09] MEDS: Insulin LISPRO 300 UNITS/3 ML VIAL SUBQ SCH ×4 (08:13→21:27)
[2020-09-09] MEDS: Aspirin 81 MG TAB.CHEW PO SCH (08:17)
[2020-09-09] MEDS: Sennosides 8.6 MG TABLET PO SCH ×2 (08:18→21:15)
[2020-09-09] MEDS: carvediloL 6.25 MG TABLET PO SCH ×2 (08:18→16:02)
[2020-09-09] MEDS: Gabapentin 300 MG CAPSULE PO SCH ×3 (08:19→21:13)
[2020-09-09] MEDS: Loratadine 10 MG TABLET PO SCH (08:19)
[2020-09-09] MEDS: Folic Acid 1 MG TABLET PO SCH (08:19)
[2020-09-09] MEDS: Cholecalciferol (D-3) 1,000 UNIT (25MCG) TABLET PO SCH (08:19)
[2020-09-09] MEDS: Multivit/Ca/Min/Fe/FA 1 TAB TABLET PO SCH (08:19)
[2020-09-09] MEDS: Insulin DETEMIR 100 UNIT/ML X5UNITS SUBQ SCH ×2 (08:28→21:28)
[2020-09-10 03:23] LABS: Hematocrit 25.2 % (37.5-50.1); Hemoglobin 8.4 g/dL (12.9-16.9); Mean Corpuscular HGB Conc 33.3 g/dL (31.6-35.5); Mean Corpuscular Hemoglobin 30.9 pg (28.0-33.3); Mean Corpuscular Volume 92.6 fL (83.0-100.0); Mean Platelet Volume 12.4 fL (9.4-12.4); Platelet Count 121 K/mcL (140-400); Red Blood Count 2.72 M/mcL (4.19-5.50); Red Cell Distribution Width 15.4 % (11.5-14.5)
[2020-09-10 03:33] LABS: INR 2.3; Prothrombin Time 26.2 Seconds (9.4-12.1)
[2020-09-10] MEDS: Ipratropium 1 PUFF INHALER IH SCH ×6 (03:48→23:40)
[2020-09-10] MEDS: *HR* OxyCODONE Immed Rel 5 MG TABLET PO PRN ×2 (05:26→11:54)
[2020-09-10] MEDS: Insulin LISPRO 300 UNITS/3 ML VIAL SUBQ SCH ×4 (07:50→20:04)
[2020-09-10] MEDS: Dexamethasone Sodium Phos/PF 10 MG/ML VIAL IVP SCH (08:00)
[2020-09-10] MEDS: Pantoprazole 40 MG VIAL IVP SCH (08:00)
[2020-09-10] MEDS: Sennosides 8.6 MG TABLET PO SCH ×2 (08:04→20:03)
[2020-09-10] MEDS: Cholecalciferol (D-3) 1,000 UNIT (25MCG) TABLET PO SCH (08:04)
[2020-09-10] MEDS: Loratadine 10 MG TABLET PO SCH (08:05)
[2020-09-10] MEDS: Folic Acid 1 MG TABLET PO SCH (08:05)
[2020-09-10] MEDS: Gabapentin 300 MG CAPSULE PO SCH ×3 (08:05→20:03)
[2020-09-10] MEDS: Aspirin 81 MG TAB.CHEW PO SCH (08:05)
[2020-09-10] MEDS: carvediloL 6.25 MG TABLET PO SCH ×2 (08:05→17:08)
[2020-09-10] MEDS: Multivit/Ca/Min/Fe/FA 1 TAB TABLET PO SCH (08:05)
[2020-09-10] MEDS: Insulin DETEMIR 100 UNIT/ML X5UNITS SUBQ SCH ×2 (08:22→20:04)
[2020-09-10] MEDS ORDERED: Saline Nasal Spray 44 ML BOTTLE NS PRN (09:41)
[2020-09-10] MEDS: polyethylene glycoL 3350 17 GM POWD.PACK PO SCH (11:24)
[2020-09-10] MEDS ORDERED: *HR* Warfarin 3 MG TABLET PO ONE (18:00)
[2020-09-10] MEDS ORDERED: *HR* Warfarin 0.5 MG TABLET PO ONE ×3 (18:00)
[2020-09-11] MEDS: *HR* OxyCODONE Immed Rel 5 MG TABLET PO PRN ×3 (00:02→20:09)
[2020-09-11] MEDS: Ipratropium 1 PUFF INHALER IH SCH ×6 (03:29→23:21)
[2020-09-11] MEDS: Acetaminophen 325 MG TABLET PO PRN (03:50)
[2020-09-11 07:02] LABS: Red Blood Count 2.57 M/mcL (4.19-5.50); Red Cell Distribution Width 15.8 % (11.5-14.5)
[2020-09-11 07:04] LABS: Hematocrit 23.9 % (37.5-50.1); Hemoglobin 8.1 g/dL (12.9-16.9); Mean Corpuscular HGB Conc 33.9 g/dL (31.6-35.5); Mean Corpuscular Hemoglobin 31.5 pg (28.0-33.3); White Blood Count 24.8 K/mcL (4.3-11.1)
[2020-09-11 07:10] LABS: INR 1.9; Prothrombin Time 21.8 Seconds (9.4-12.1)
[2020-09-11 07:23] LABS: Calcium 8.4 mg/dL (8.6-10.3); Potassium 4.5 mEq/L (3.5-5.1)
[2020-09-11] MEDS: Cholecalciferol (D-3) 1,000 UNIT (25MCG) TABLET PO SCH (07:47)
[2020-09-11] MEDS: Insulin LISPRO 300 UNITS/3 ML VIAL SUBQ SCH ×4 (07:47→20:09)
[2020-09-11] MEDS: Folic Acid 1 MG TABLET PO SCH (07:47)
[2020-09-11] MEDS: carvediloL 6.25 MG TABLET PO SCH ×2 (07:48→16:05)
[2020-09-11] MEDS: Dexamethasone Sodium Phos/PF 10 MG/ML VIAL IVP SCH (07:48)
[2020-09-11] MEDS: Gabapentin 300 MG CAPSULE PO SCH ×3 (07:48→20:08)
[2020-09-11] MEDS: Aspirin 81 MG TAB.CHEW PO SCH (07:48)
[2020-09-11] MEDS: Loratadine 10 MG TABLET PO SCH (07:48)
[2020-09-11] MEDS: Multivit/Ca/Min/Fe/FA 1 TAB TABLET PO SCH (07:48)
[2020-09-11] MEDS: Sennosides 8.6 MG TABLET PO SCH ×2 (07:48→20:07)
[2020-09-11] MEDS: Pantoprazole 40 MG VIAL IVP SCH (07:49)
[2020-09-11] MEDS: polyethylene glycoL 3350 17 GM POWD.PACK PO SCH ×2 (07:49→10:53)
[2020-09-11] MEDS: Insulin DETEMIR 100 UNIT/ML X5UNITS SUBQ SCH (10:53)
[2020-09-12] MEDS: Acetaminophen 325 MG TABLET PO PRN (01:25)
[2020-09-12] MEDS: Ipratropium 1 PUFF INHALER IH SCH ×6 (03:05→23:26)
[2020-09-12 03:13] LABS: Basophils % 0.1 %; Eosinophils # 0.2 K/mcL (0.0-0.6); Eosinophils % 0.7 %; Hematocrit 22.1 % (37.5-50.1); Hemoglobin 7.4 g/dL (12.9-16.9); Immature Granulocytes % 2.7 % (0-4); Lymphocytes # 0.5 K/mcL (0.6-4.6); Lymphocytes % 2.1 %; Mean Corpuscular HGB Conc 33.5 g/dL (31.6-35.5); Mean Corpuscular Hemoglobin 31.4 pg (28.0-33.3); Mean Corpuscular Volume 93.6 fL (83.0-100.0); Mean Platelet Volume 12.4 fL (9.4-12.4); Monocytes # 0.8 K/mcL (0.0-1.3); Monocytes % 3.4 %; Platelet Count 135 K/mcL (140-400); Red Blood Count 2.36 M/mcL (4.19-5.50); Red Cell Distribution Width 16.2 % (11.5-14.5)
[2020-09-12 03:26] LABS: INR 1.7; Prothrombin Time 19.9 Seconds (9.4-12.1)
[2020-09-12 03:32] LABS: Calcium 8.2 mg/dL (8.6-10.3); Potassium 4.9 mEq/L (3.5-5.1)
[2020-09-12] MEDS: Folic Acid 1 MG TABLET PO SCH (08:01)
[2020-09-12] MEDS: Aspirin 81 MG TAB.CHEW PO SCH (08:01)
[2020-09-12] MEDS: Sennosides 8.6 MG TABLET PO SCH ×2 (08:01→20:30)
[2020-09-12] MEDS: Cholecalciferol (D-3) 1,000 UNIT (25MCG) TABLET PO SCH (08:01)
[2020-09-12] MEDS: Multivit/Ca/Min/Fe/FA 1 TAB TABLET PO SCH (08:02)
[2020-09-12] MEDS: Gabapentin 300 MG CAPSULE PO SCH ×3 (08:02→20:30)
[2020-09-12] MEDS: carvediloL 6.25 MG TABLET PO SCH ×2 (08:02→16:01)
[2020-09-12] MEDS: Dexamethasone Sodium Phos/PF 10 MG/ML VIAL IVP SCH (08:04)
[2020-09-12] MEDS: Loratadine 10 MG TABLET PO SCH (08:07)
[2020-09-12] MEDS: Insulin LISPRO 300 UNITS/3 ML VIAL SUBQ SCH ×4 (08:23→20:32)
[2020-09-12] MEDS: polyethylene glycoL 3350 17 GM POWD.PACK PO SCH (08:35)
[2020-09-12] MEDS ORDERED: Furosemide 20 MG/2 ML VIAL IVP ONE (09:02)
[2020-09-12] MEDS: *HR* OxyCODONE Immed Rel 5 MG TABLET PO PRN (20:30)
[2020-09-13] MEDS: *HR* OxyCODONE Immed Rel 5 MG TABLET PO PRN ×4 (00:28→21:18)
[2020-09-13] MEDS: Ipratropium 1 PUFF INHALER IH SCH ×6 (04:14→23:24)
[2020-09-13] MEDS: Folic Acid 1 MG TABLET PO SCH (08:17)
[2020-09-13] MEDS: Dexamethasone Sodium Phos/PF 10 MG/ML VIAL IVP SCH (08:17)
[2020-09-13] MEDS: Gabapentin 300 MG CAPSULE PO SCH ×3 (08:17→21:19)
[2020-09-13] MEDS: Cholecalciferol (D-3) 1,000 UNIT (25MCG) TABLET PO SCH (08:18)
[2020-09-13] MEDS: Sennosides 8.6 MG TABLET PO SCH ×2 (08:18→21:18)
[2020-09-13] MEDS: carvediloL 6.25 MG TABLET PO SCH ×2 (08:18→17:16)
[2020-09-13] MEDS: Loratadine 10 MG TABLET PO SCH (08:18)
[2020-09-13] MEDS: Aspirin 81 MG TAB.CHEW PO SCH (08:19)
[2020-09-13] MEDS: Multivit/Ca/Min/Fe/FA 1 TAB TABLET PO SCH (08:19)
[2020-09-13] MEDS: Insulin LISPRO 300 UNITS/3 ML VIAL SUBQ SCH ×4 (08:19→21:18)
[2020-09-13] MEDS: polyethylene glycoL 3350 17 GM POWD.PACK PO SCH (08:19)
[2020-09-13] MEDS ORDERED: Morphine Sulfate 2 MG/ML SYRINGE IVP ONE (15:17)
[2020-09-13] MEDS ORDERED: *HR* LORazepam 2 MG/ML VIAL IVP PRN (15:18)
[2020-09-13 17:03] LABS: Hematocrit 23.4 % (37.5-50.1); Hemoglobin 7.8 g/dL (12.9-16.9); Immature Granulocytes % 1.6 % (0-4); Lymphocytes # 0.2 K/mcL (0.6-4.6); Lymphocytes % 0.8 %; Mean Corpuscular HGB Conc 33.3 g/dL (31.6-35.5); Mean Corpuscular Volume 95.9 fL (83.0-100.0); Mean Platelet Volume 11.9 fL (9.4-12.4); Monocytes # 0.6 K/mcL (0.0-1.3); Monocytes % 2.4 %; Neutrophils # 23.2 K/mcL (1.6-8.9); Platelet Count 133 K/mcL (140-400); Red Blood Count 2.44 M/mcL (4.19-5.50); Red Cell Distribution Width 16.5 % (11.5-14.5); Segmented Neutrophils % 95.2 %; White Blood Count 24.4 K/mcL (4.3-11.1)
[2020-09-13 17:04] LABS: Platelet Estimate Normal (Normal)
[2020-09-13 17:16] LABS: INR 1.4; Prothrombin Time 15.6 Seconds (9.4-12.1)
[2020-09-13] MEDS: *HR* Heparin 5,000 UNIT/ML VIAL SQ SCH (17:16)
[2020-09-13 17:26] LABS: Albumin 2.6 g/dL (3.5-5.7); Albumin/Globulin Ratio 0.7 (1.1-2.2); Calcium 8.4 mg/dL (8.6-10.3); Globulin 3.6 g/dL (2.4-3.5); Potassium 5.8 mEq/L (3.5-5.1); Total Protein 6.2 g/dL (6.4-8.9)
[2020-09-13] MEDS ORDERED: Furosemide 20 MG/2 ML VIAL IVP ONE (17:35)
[2020-09-14] MEDS: *HR* OxyCODONE Immed Rel 5 MG TABLET PO PRN ×2 (01:07→10:37)
[2020-09-14] MEDS: Ipratropium 1 PUFF INHALER IH SCH ×3 (03:47→11:52)
[2020-09-14 04:27] LABS: Basophils % 0.1 %; Hematocrit 24.3 % (37.5-50.1); Hemoglobin 7.7 g/dL (12.9-16.9); Immature Granulocytes % 1.3 % (0-4); Lymphocytes # 0.3 K/mcL (0.6-4.6); Lymphocytes % 1.2 %; Mean Corpuscular HGB Conc 31.7 g/dL (31.6-35.5); Mean Corpuscular Hemoglobin 30.7 pg (28.0-33.3); Mean Corpuscular Volume 96.8 fL (83.0-100.0); Mean Platelet Volume 12.1 fL (9.4-12.4); Monocytes # 0.7 K/mcL (0.0-1.3); Monocytes % 3.3 %; Platelet Count 155 K/mcL (140-400); Red Blood Count 2.51 M/mcL (4.19-5.50); Red Cell Distribution Width 16.8 % (11.5-14.5); Segmented Neutrophils % 94.1 %; White Blood Count 22.3 K/mcL (4.3-11.1)
[2020-09-14 04:44] LABS: Albumin 2.7 g/dL (3.5-5.7); Albumin/Globulin Ratio 0.7 (1.1-2.2); Calcium 8.7 mg/dL (8.6-10.3); Globulin 3.8 g/dL (2.4-3.5); Potassium 5.3 mEq/L (3.5-5.1); Total Protein 6.5 g/dL (6.4-8.9)
[2020-09-14] MEDS: *HR* Heparin 5,000 UNIT/ML VIAL SQ SCH (05:43)
[2020-09-14] MEDS: polyethylene glycoL 3350 17 GM POWD.PACK PO SCH (08:25)
[2020-09-14] MEDS: Folic Acid 1 MG TABLET PO SCH (08:26)
[2020-09-14] MEDS: Cholecalciferol (D-3) 1,000 UNIT (25MCG) TABLET PO SCH (08:26)
[2020-09-14] MEDS: Aspirin 81 MG TAB.CHEW PO SCH (08:26)
[2020-09-14] MEDS: Multivit/Ca/Min/Fe/FA 1 TAB TABLET PO SCH (08:26)
[2020-09-14] MEDS: Loratadine 10 MG TABLET PO SCH (08:27)
[2020-09-14] MEDS: Sennosides 8.6 MG TABLET PO SCH (08:27)
[2020-09-14] MEDS: Gabapentin 300 MG CAPSULE PO SCH ×2 (08:27→15:03)
[2020-09-14] MEDS: carvediloL 6.25 MG TABLET PO SCH (08:27)
[2020-09-14] MEDS: Insulin LISPRO 300 UNITS/3 ML VIAL SUBQ SCH (08:31)
[2020-09-14 10:37] VITALS: BP 125/88
[2020-09-14] MEDS ORDERED: Acetaminophen 650 MG RECTAL SUPP RC PRN (12:28)
[2020-09-14] MEDS ORDERED: Atropine 1% Opth Drops 100 DROP/5 ML BOTTLE SL PRN (12:29)
[2020-09-14] MEDS ORDERED: Haloperidol Lactate 5 MG/ML VIAL IVP PRN (12:30)
[2020-09-14] MEDS ORDERED: Bisacodyl 10 MG RECTAL SUPPOSITORY RC PRN (14:14)
[2020-09-14] MEDS: *HR* FentaNYL (PF) 100 MCG/2 ML VIAL IVP PRN ×2 (15:04→16:49)
[2020-09-14] MEDS: *HR* LORazepam 2 MG/ML VIAL IVP PRN ×2 (15:04→17:16)
== END 2020-09-14 17:50 | disposition expired | DRG 871 ==
LOC: EMEROOARM 11:23 → 2NENU 11:23 → SUATTDRO 15:38 → 2NENU 17:04 → SUATTDRO 19:15 → 2ANU 09-14 13:48
PROVIDERS: ADMIT Pharmacist; ATTEND Family Medicine